=== PATIENT | male | born 1955 | race African-American/Black ===

== ENCOUNTER 2017-11-20 03:29 | Emergency (ER) | payer OTHER, MEDICARE ==
[~2017-11-20 03:29] MED LIST: ROCURONIUM BROMIDE INJ 50 MG/5 ML VIAL IV ONE
[2017-11-20] MEDS ORDERED: ETOMIDATE INJ/PF 20 MG/10 ML SDV IV ONE (04:12)
[2017-11-20] MEDS ORDERED: DEXTROSE 5%-WATER 250 ML with NOREPINEPHRINE BITARTRATE 4 MG IV PRN ×2 (04:25)
[2017-11-20] MEDS ORDERED: MIDAZOLAM 2 MG/2 ML INJ ONE (04:26)
[2017-11-20] MEDS ORDERED: ASPIRIN 81 MG TABLET, CHEWABLE PO ONE (04:29)
[2017-11-20] MEDS ORDERED: MIDAZOLAM HCL 50 MG/100 ML RTUINJ ONE ×2 (04:29→09:04)
[2017-11-20] MEDS ORDERED: NOREPINEPHRINE BITARTRATE INJ/PF 4 MG/4 ML SDV IV ONE (04:40)
--- NOTE | 2017-11-20 05:09 | ER Document Report ---
ED General - HPI Patient complains to provider of: Respiratory distress <PANKAJ PICKENS - Last Filed: 11/20/17 06:20> - General TRAVEL OUTSIDE OF THE U.S. IN LAST 30 DAYS: No <CATY DUMONTADIRAEANNMARIANO - Last Filed: 11/20/17 06:42> - General Chief Complaint: Shortness Of Breath Stated Complaint: SHORTNESS OF BREATH Time Seen by Provider: 11/20/17 04:28 Notes: Pt. is a 62 year old male presenting to the ED c/o SOB, Per the Pt. has been increasingly short of breath for the last week. Stated that the pt. has also been falling more recently. stated patient did take a fall about 3 days ago hitting the right side of his face and his right eye. states patient did not lose consciousness or have any vomiting at that time but refused to come to the emergency room. states at no time did the patient ever complained of chest pain. states the patient has been hallucinating over the last week as well. Patient has extensive medical history. Had a heart transplant in [facility] in 2011. Prior to that had an LVAD. 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 When they were trying to remove the LVAD they punctured his colon. He did have a colostomy which was then reversed. states he goes to [facility] every 6 months to follow-up at the clinic. Here in [place] he goes to the [place] clinic to see a doctor every month. is unsure of the names of those doctors. states patient continues to smoke cigarettes. 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 Please refer to the PAs note above for the initial encounter according to the nurse patient was able to stand out of the wheelchair and placed himself on the bed and became apneic upon my encounter patient was apneic being [id number] states history of LVAD now with heart transplant states productive sputum multiple falls generalized weakness noted neck himself subjective fevers for the last few days. Patient was to be in respiratory distress removing to intubate the patient (PANKAJ PICKENS) - Related Data Allergies/Adverse Reactions: No Known Allergies Allergy (Verified 01/11/12 14:25) Past Medical History - General Information source: Relative - Social History Smoking Status: Current Every Day Smoker Lives with: Family Family History: Reviewed & Not Pertinent - Past Medical History Cardiac Medical History: Reports: Hx Congestive Heart Failure, Hx Heart Attack, Hx Hypertension - NOW HAS BP IN 75 SYSTOLIC RANGE ON MEDS SINCE THE HEART TRANSPLANT Neurological Medical History: Reports: Hx Cerebrovascular Accident - 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 Past Surgical History: Reports: Hx Cardiac Surgery - heart transplant 2010, Hx Colostomy - Immunizations Immunizations up to date: Yes <GLADYS DUMONT - Last Filed: 11/20/17 06:42> Review of Systems - Review of Systems -: Yes ROS unobtainable due to patient's medical condition - Unstable <PANKAJ PICKENS - Last Filed: 11/20/17 06:20> - Review of Systems Constitutional: See HPI EENT: See HPI Cardiovascular: See HPI Respiratory: See HPI Gastrointestinal: See HPI Genitourinary: No symptoms reported Male Genitourinary: No symptoms reported Musculoskeletal: No symptoms reported Skin: No symptoms reported Hematologic/Lymphatic: No symptoms reported Neurological/Psychological: See HPI <GLADYS DUMONT - Last Filed: 11/20/17 06:42> Physical Exam - Vital signs Interpretation: Hypoxic - General General appearance: Unresponsive In distress: Severe - HEENT Head: No: Normocephalic - Swelling to the right orbit Eyes: Normal Pupils: PERRL Neck: Normal - Respiratory Respiratory status: Respiratory distress Chest status: Nontender Breath sounds: Normal Chest palpation: Normal - Cardiovascular Rhythm: Regular Heart sounds: Normal auscultation Murmur: Yes Systolic murmur grade 1-6: 3 - Abdominal Inspection: Normal Distension: No distension Bowel sounds: Normal Tenderness: Nontender Organomegaly: No organomegaly - Back Back: Normal, Nontender - Extremities General upper extremity: Normal inspection, Nontender, Normal color General lower extremity: Normal inspection, Nontender, Normal color - Neurological [place] Coma Scale Eye Opening: None [place] Coma Scale Verbal: None [place] Coma Scale Motor: None [place] Coma Scale Total: 3 - Skin Skin Temperature: Warm Skin Moisture: Dry Skin Color: Normal <PANKAJ PICKENS - Last Filed: 11/20/17 06:20> <GLADYS DUMONT - Last Filed: 11/20/17 06:42> - Vital signs Vitals: Temp Pulse Resp BP 97.9 F 88 26 H 136/70 H 11/20/17 03:50 11/20/17 03:50 11/20/17 03:50 11/20/17 03:50 - Notes Notes: GENERAL: on Bipap per staff nurse icu resource team, Pt unresponsive, agonal respirations. HEAD: Normocephalic, swelling/brusing noted right orbit. bruise noted quarter size left forehead. EYES: Pupils pin point, unresponsive. ENT: Oral mucosa moist, tongue midline. NECK: Trachea midline no JVD. LUNGS: Scant wheeze to auscultation bilaterally, no rales, or rhonchi. HEART: Regular rate and rhythm. No murmur ABDOMEN: Soft, Non-distended. Bowel sounds present in all 4 quadrants. Well healed abd scar veritcal down entire chest and abd to superpubic area. EXTREMITIES: +2 pitting edema BL lower legs to calf. normal radial and dorsalis pedis pulses bilaterally. No cyanosis. BACK: no obvious trauma NEUROLOGICAL: Unresponsive. SKIN: Warm, dry, normal turgor. (GLADYS DUMONT) - Abdominal Notes: Multiple abdominal scars (PANKAJ PICKENS) Course - Laboratory Result Diagrams: 11/20/17 04:50 11/20/17 04:50 <PANKAJ PICKENS - Last Filed: 11/20/17 06:20> - Laboratory Result Diagrams: 11/20/17 04:50 11/20/17 04:50 <GLADYS DUMONT - Last Filed: 11/20/17 06:42> - Re-evaluation Re-evalutation: Upon arrival to Pt. room Pt is unresponsive and on Bipap per RN and Resp staff. Started BVM 02 15 lpm, set up for intubation. staff nurse icu resource team had difficulty with IV access, tounge depressor placed in Pts mouth which showed no gag reflux. Intubation attempted, Pt then has a gag. At that time IV access was established and IV Etomidate was given. staff nurse icu resource team stated blood was not able to be accessed from the Pts IV site. ETT passed successfully. Rocuronium given. Central line placed by Dr. Pickens, blood obtained. Pt then went to CT. staff nurse icu resource team stated Pts BP was now 73/56, NSS Bolus and Levophed ordered. Pt. placed on Versed drip for sedation, BP now 112/92, staff nurse icu resource team informed me Levophed never started. Will hold at this time. Dr. Pickens spoke with Dr. Egan at [facility] who will accept transfer. CT shows no signs of bleeding, CXR shows PNA, ABX started for same. Dr. Harrell then took over Pt. care at shift change. (GLADYS DUMONT) - Vital Signs Vital signs: Temp Pulse Resp BP Pulse Ox 97.9 F 88 0 L 105/77 98 11/20/17 03:50 11/20/17 03:50 11/20/17 04:57 11/20/17 04:57 11/20/17 04:51 - Laboratory Laboratory results interpreted by me: 11/20/17 11/20/17 11/20/17 04:50 04:50 04:50 Hgb 13.4 L Seg Neutrophils % 85.2 H Lymphocytes % 5.2 L PT APTT VBG pCO2 VBG HCO3 Chloride 97 L Carbon Dioxide 33 H BUN 33 H Creatinine 2.26 H Est GFR ( Amer) 36 L Est GFR (Non-Af Amer) 30 L Glucose 144 H Creatine Kinase 1003 H CK-MB (CK-2) 9.16 H Total Protein 5.9 L Albumin 3.2 L 11/20/17 11/20/17 04:50 04:50 Hgb Seg Neutrophils % Lymphocytes % PT 32.3 H APTT 65.7 H VBG pCO2 65.4 H* VBG HCO3 33.6 H Chloride Carbon Dioxide BUN Creatinine Est GFR ( Amer) Est GFR (Non-Af Amer) Glucose Creatine Kinase CK-MB (CK-2) Total Protein Albumin Procedures - Central Line Left Internal jugular Consent obtained: Yes Central line pre-insertion: Sterile PPE donned, Betadine prep applied Central line lumen type: Triple Anesthetic type: 1% Lidocaine mL's of anesthesia: 2 Ultrasound guided: Yes CM at insertion site: 17 Line secured with sutures: Yes Central line post-insertion: Blood return from lumens, Biopatch applied, Sutured , Sterile dressing applied, Position confirmed w/ CXR Number of attempts: 1 Complications: No <PANKAJ PICKENS - Last Filed: 11/20/17 06:20> - Intubation Orotracheal Airway evaluation: Normal anatomy Medications: Etomidate Intubation method: Orotracheal Equipment used: Glidescope ETT size: 7.5 ETT secured at: Teeth ETT secured at (cm): 25 Breath Sounds after Intubation: Equal End tidal CO2 confirmed: Yes Post Intubation Xray: Yes Intubation Complications: No complications <GLADYS DUMONT - Last Filed: 11/20/17 06:42> Critical Care Note - Critical Care Note Total time excluding time spent on procedures (mins): 60 <PANKAJ PICKENS - Last Filed: 11/20/17 06:20> <GLADYS DUMONT - Last Filed: 11/20/17 06:42> - Critical Care Note Comments: Multiple evaluation patient with history of heart transplant requiring Levophed for blood pressure chest x-ray showing a multifocal pneumonia (PANKAJ PICKENS) Discharge <PANKAJ PICKENS - Last Filed: 11/20/17 06:20> <GLADYS DUMONT - Last Filed: 11/20/17 06:42> - Discharge Clinical Impression: History of heart transplant, Multifocal pneumonia Respiratory failure Qualifiers: Chronicity: acute Respiratory failure complication: hypoxia and hypercapnia Qualified Code(s): J96.01 - Acute respiratory failure with hypoxia Hypotension Qualifiers: Hypotension type: unspecified hypotension type Qualified Code(s): I95.9 - Hypotension, unspecified Condition: Critical Disposition: [place]
[2017-11-20 05:15] LABS: VENOUS BLOOD BASE EXCESS 5.4 mmol/L; VENOUS BLOOD HCO3 33.6 mmol/L (20-32); VENOUS BLOOD PH 7.33 (7.30-7.42)
[2017-11-20 05:18] LABS: VENOUS BLOOD PCO2 65.4 mmHg (35-63)
[2017-11-20] MEDS ORDERED: NORMAL SALINE 1000 ML 1,000 ML IV ONE ×3 (05:18→06:15)
[2017-11-20 05:20] LABS: ABSOLUTE BASOPHILS # (AUTO) 0.1 10^3/uL (0.0-0.2); ABSOLUTE LYMPHOCYTES (AUTO) 0.5 10^3/uL (0.5-4.7); ABSOLUTE MONOCYTES (AUTO) 0.8 10^3/uL (0.1-1.4); ABSOLUTE NEUT (AUTO) 8.1 10^3/uL (1.7-8.2); BASOPHILS % (AUTO) 0.6 % (0-2); EOSINOPHILS % (AUTO) 0.4 % (0-6); HEMATOCRIT 40.6 % (37.9-51.0); HEMOGLOBIN 13.4 g/dL (13.5-17.0); LYMPHOCYTES % (AUTO) 5.2 % (13-45); MEAN CORPUSCULAR HEMOGLOBIN 30.7 pg (27.0-33.4); MEAN CORPUSCULAR HGB CONC 32.9 g/dL (32.0-36.0); MEAN CORPUSCULAR VOLUME 93 fl (80-97); MONOCYTES % (AUTO) 8.6 % (3-13); PLATELET COUNT 182 10^3/uL (150-450); RED BLOOD COUNT 4.35 10^6/uL (4.35-5.55); SEGMENTED NEUTROPHILS % (AUTO) 85.2 % (42-78); TOTAL CELLS COUNTED % (AUTO) 100 %; WHITE BLOOD COUNT 9.6 10^3/uL (4.0-10.5)
[2017-11-20 05:23] LABS: INTERNATIONAL RATION (INR) 2.97; PROTHROMBIN TIME 32.3 SEC (11.4-15.4)
[2017-11-20 05:25] LABS: PARTIAL THROMBOPLASTIN TIME 65.7 SEC (23.5-35.8)
[2017-11-20 05:29] LABS: ALANINE AMINOTRANSFERASE 48 U/L (21-72); ALBUMIN 3.2 g/dL (3.5-5.0); ALKALINE PHOSPHATASE 56 U/L (38-126); ANION GAP 9 (5-19); ASPARTATE AMINO TRANSFERASE 55 U/L (17-59); BILIRUBIN,DIRECT 0.2 mg/dL (0.0-0.4); BILIRUBIN,TOTAL 0.7 mg/dL (0.2-1.3); BLOOD UREA NITROGEN 33 mg/dL (7-20); CALCIUM 8.4 mg/dL (8.4-10.2); CARBON DIOXIDE 33 mmol/L (22-30); CHLORIDE 97 mmol/L (98-107); CREATINE KINASE 1003 U/L (55-170); GLUCOSE 144 mg/dL (75-110); POTASSIUM 3.9 mmol/L (3.6-5.0); TOTAL PROTEIN 5.9 g/dL (6.3-8.2)
--- NOTE | 2017-11-20 05:31 | RADIOLOGY REPORT (SQ) ---
CT head without contrast on 11/20/2017 at 5:09 AM CLINICAL INDICATION: Altered level of consciousness TECHNIQUE: Multiple axial images are obtained throughout the head without the administration of contrast. This exam was performed according to our departmental dose-optimization program, which includes automated exposure control, adjustment of the mA and/or kV according to patient size and/or use of iterative reconstruction technique. Total DLP is 1070.38 mGy*cm. COMPARISON: 08/16/2010 FINDINGS: There is no hydrocephalus. There is no CT evidence of acute infarct. There is no hemorrhage. There are no abnormal extra-axial fluid collections. There is no mass, mass effect or midline shift. Chronic complete opacification of the hypoplastic left maxillary sinuses consistent with changes of chronic sinusitis. There is chronic opacification of the left frontal sinus consistent with chronic sinusitis. No bony abnormality is noted. IMPRESSION: 1. No acute intracranial abnormality. 2. Stable chronic left maxillary and left frontal sinusitis.
--- NOTE | 2017-11-20 05:32 | RADIOLOGY REPORT (SQ) ---
EXAM DESCRIPTION: XR CHEST 1 VIEW COMPLETED DATE/TME: 11/20/2017 00:00 CLINICAL HISTORY: 62 years Male, POST INTUBATION COMPARISON: January 11, 2012 NUMBER OF VIEWS/TECHNIQUE: 1/AP FINDINGS: Adequate lung volume, mild central edema pattern, small curvilinear opacity of the left lower lung field, normal cardiac silhouette, small hazy opacity-effusion of the right lung base, left jugular central line tip at the SVC, sternotomy, likely adequate enteric tube obscured distally, and tip of an endotracheal tracheal tube is 4.2 cm from the shin. Right upper thoracic clips., normal cardiac silhouette, and intact bony thorax. IMPRESSION: Mild mixed interstitial and airpace opacities. Differential diagnosis includes pulmonary edema, multifocal pneumonia, and chronic interstitial lung disease. Lines and tubes.
[2017-11-20 05:41] LABS: CREATINE KINASE MB 9.16 ng/mL (<4.55)
[2017-11-20 05:44] LABS: TROPONIN I 0.066 ng/mL
[2017-11-20] MEDS ORDERED: VANCOMYCIN HCL INJ 1000 MG VIAL IV ONE (05:44)
[2017-11-20] MEDS ORDERED: CEFEPIME 1 GM/D5W RTU 1 GM/50 ML RTUPB IV SCH (05:45)
--- NOTE | 2017-11-20 09:21 | EKG REPORT ---
SEVERITY:- BORDERLINE ECG - SINUS RHYTHM PROBABLE LEFT ATRIAL ABNORMALITY BORDERLINE PROLONGED QT INTERVAL : Confirmed by: Anamaria Cruz MD 20-Nov-2017 09:20:21
--- NOTE | 2017-11-20 09:21 | EKG REPORT ---
SEVERITY:- ABNORMAL ECG - SINUS RHYTHM BORDERLINE RIGHT AXIS DEVIATION NONSPECIFIC T ABNORMALITIES, ANTERIOR LEADS : Confirmed by: Anamaria Cruz MD 20-Nov-2017 09:20:16
--- NOTE | 2017-11-20 09:50 | ER Document Report ---
Doctor's Note Notes: 11/20/17 09:49 Patient's vital signs are stable. Patient has adequate sedation. Will fly to [facility].
[2017-11-20 09:54] LABS: AMORPHOUS SEDIMENT,URINE TRACE /HPF; APPEARANCE,URINE CLOUDY; BILIRUBIN,URINE NEGATIVE (NEGATIVE); GLUCOSE, URINE NEGATIVE (NEGATIVE); KETONES,URINE NEGATIVE (NEGATIVE); LEUKOCYTE ESTERASE,URINE MODERATE (NEGATIVE); NITRITE,URINE NEGATIVE (NEGATIVE); PROTEIN,URINE >=500 mg/dL (NEGATIVE); UROBILINOGEN,URINE NEGATIVE mg/dL (<2.0)
[2017-11-20 09:56] LABS: COLOR,URINE YELLOW
[2017-11-20 10:10] VITALS: BP 109/78
[2017-11-20 10:10] LABS: URINE AMPHETAMINES SCREEN NEGATIVE; URINE BARBITURATES SCREEN NEGATIVE; URINE BENZODIAZEPINES SCREEN NEGATIVE; URINE COCAINE SCREEN NEGATIVE; URINE MARIJUANA (THC) SCREEN UNCONFIRMED POSITIVE; URINE METHADONE SCREEN NEGATIVE; URINE PHENCYCLIDINE SCREEN NEGATIVE
[2017-11-27] MEDS ORDERED: MIDAZOLAM HCL 50 MG/100 ML RTUINJ IV PRN (04:25)
== END 2017-11-20 10:00 | disposition short-term general hospital (02) ==
LOC: ER 03:29
DX: J96.02 Acute respiratory failure with hypercapnia (principal); J96.01 Acute respiratory failure with hypoxia; J18.9 Pneumonia, unspecified organism; I95.9 Hypotension, unspecified; R06.02 Shortness of breath; R60.0 Localized edema; R53.1 Weakness; R44.3 Hallucinations, unspecified; S00.11XA Contusion of right eyelid and periocular area, initial encounter; S00.83XA Contusion of other part of head, initial encounter; W19.XXXA Unspecified fall, initial encounter; F17.200 Nicotine dependence, unspecified, uncomplicated; I10 Essential (primary) hypertension; Z94.1 Heart transplant status; Z79.899 Other long term (current) drug therapy; Z79.82 Long term (current) use of aspirin; Z79.01 Long term (current) use of anticoagulants
CPT/HCPCS: 93005; 99291; 96361; 51702; 96365; 96366; 96368; 36415; 87040; 87086; 82553; 82962; 82550; 83690; 85025; 85610; 85730; 80053; 81001; 84484; 80307; 82803; 71045; 70450; 94660; 93010; 36556; 31500; C1751; J3490 ×3; J2250; J7030; J3370; J0692

== ENCOUNTER → 2018-01-18 | Outpatient (CLI) | payer OTHER ==
--- NOTE | 2018-01-19 11:53 | XCELERA REPORT ---
[address] [address] Upper Extremity Venous Evaluation Name: ALYSIA AGARWAL Age: 62 yrs Gender: Male : 1955 Patient Status: Outpatient Patient Location: Study Date: 01/18/2018 11:54 AM Procedure: Unilateral duplex scan of the left upper extremity veins was performed, including responses to compression and other maneuvers. Reason For Study: LEFT ARM SWELLING Ordering Physician: JUNIOR GARCIA PA-C Performed By: Gurdeep Lang Left Sided Venous Evaluation Abnormal vessel filling, no compression or Colour flow in the Axillary and Basilic veins. Lucent, enlarged filling defects. Critical Findings Results discussed with Junior Garcia PA. Interpretation Summary Acute deep venous thrombosis in the left Axillary and superficial venous thrombosis in the left Basilic vein. : JUNIOR GARCIA PA-C > Terrance Hamilton
--- NOTE | 2018-01-19 12:50 | XCELERA REPORT ---
[address] [address] Upper Extremity Arterial Evaluation Name: ALYSIA AGARWAL Age: 62 yrs Gender: Male : 1955 Patient Status: Outpatient Patient Location: Study Date: 01/18/2018 11:31 AM Procedure: A duplex scan of the upper extremity arteries was performed on the left. Reason For Study: LUE STENOSIS Ordering Physician: JUNIOR AQUINO PA-C Performed By: Gurdeep Lang Measurements and Calculations Right Left Prox SCLA PSV -91.1 cm/sec Ax A PSV 82.2 cm/sec Prox Brach A PSV 70.2 cm/sec Dist Brach A PSV -67.2 cm/sec Prox Rad A PSV -20.6 cm/sec Mid Rad A PSV -20.4 cm/sec Dist Rad A PSV -28.9 cm/sec Prox Ulnar A PSV -67.2 cm/sec Mid Ulnar A PSV 77.7 cm/sec Dist Ulnar A PSV -77.2 cm/sec Ax A PSV 82.2 cm/sec Dist Brach A PSV -67.2 cm/sec Dist Rad A PSV -28.9 cm/sec Dist Ulnar A PSV -77.2 cm/sec Mid Rad A PSV -20.4 cm/sec Mid Ulnar A PSV 77.7 cm/sec Prox Brach A PSV 70.2 cm/sec Prox Rad A PSV -20.6 cm/sec Prox Ulnar A PSV -67.2 cm/sec Left Side Arterial Evaluation Normal velocity and triphasic waveforms noted from the Common Femoral artery to the forearm vessels . Bandaging at the chest makes the Subclavian inaccessible to ultrasound. Interpretation Summary No hemodynamically significant lesions in the left upper extremity only, on duplex imaging, at rest. : CHRISTIANE GUEVARA [place] >
== END ==
LOC: SP 11:01
PROVIDERS: ATTEND Physician Assistant Medical
DX: I82.A12 Acute embolism and thrombosis of left axillary vein (principal); I82.612 Acute embolism and thrombosis of superficial veins of left upper extremity
CPT/HCPCS: 93931; 93971

== ENCOUNTER → 2018-07-02 | Outpatient (CLI) | payer OTHER ==
[2018-07-02 15:57] LABS: URINE CREATININE 81.6 mg/dL (22-328)
[2018-07-02 15:58] LABS: CREATININE 3.3 mg/dL (0.52-1.25)
== END ==
LOC: OD 14:21
PROVIDERS: ATTEND Physician Assistant Medical
DX: N17.9 Acute kidney failure, unspecified (principal)
CPT/HCPCS: 36415; 82575

== ENCOUNTER → 2018-08-02 | Outpatient (CLI) | payer OTHER ==
[2018-08-02 09:07] LABS: HEMATOCRIT 37.8 % (37.9-51.0); HEMOGLOBIN 12.1 g/dL (13.5-17.0); MEAN CORPUSCULAR HEMOGLOBIN 29.2 pg (27.0-33.4); MEAN CORPUSCULAR HGB CONC 32.1 g/dL (32.0-36.0); MEAN CORPUSCULAR VOLUME 91 fl (80-97); PLATELET COUNT 209 10^3/uL (150-450); RED BLOOD COUNT 4.15 10^6/uL (4.35-5.55); RED CELL DISTRIBUTION WIDTH 13.9 % (11.5-14.0); WHITE BLOOD COUNT 7.2 10^3/uL (4.0-10.5)
[2018-08-02 09:15] LABS: APPEARANCE,URINE SLIGHTLY-CLOUDY; BILIRUBIN,URINE NEGATIVE (NEGATIVE); COLOR,URINE YELLOW; GLUCOSE, URINE NEGATIVE (NEGATIVE); KETONES,URINE NEGATIVE (NEGATIVE); LEUKOCYTE ESTERASE,URINE SMALL (NEGATIVE); NITRITE,URINE NEGATIVE (NEGATIVE); PROTEIN,URINE >=500 mg/dL (NEGATIVE); URINE SPECIFIC GRAVITY 1.009; UROBILINOGEN,URINE NEGATIVE mg/dL (<2.0)
[2018-08-02 09:36] LABS: ANION GAP 7 (5-19); BLOOD UREA NITROGEN 43 mg/dL (7-20); CALCIUM 8.8 mg/dL (8.4-10.2); CARBON DIOXIDE 32 mmol/L (22-30); CHLORIDE 104 mmol/L (98-107); GLUCOSE 102 mg/dL (75-110); PHOSPHORUS 3.9 mg/dL (2.5-4.5); POTASSIUM 4.9 mmol/L (3.6-5.0); SODIUM 143.1 mmol/L (137-145)
== END ==
LOC: OD 08:26
PROVIDERS: ATTEND Physician Assistant Medical
DX: I11.0 Hypertensive heart disease with heart failure (principal); I50.9 Heart failure, unspecified; E87.5 Hyperkalemia
CPT/HCPCS: 36415; 80048; 81001; 83970; 84100; 85027

== ENCOUNTER 2018-10-15 09:33 | Inpatient (IN) | payer OTHER ==
[2018-10-15] MEDS ORDERED: IPRATROPIUM/ALBUTEROL 0.5-2.5 MG/3 ML AMPUL NEB ONE (10:07)
[2018-10-15] MEDS ORDERED: FUROSEMIDE INJ/PF 100 MG/10 ML SDV IV ONE ×2 (10:11→19:47)
--- NOTE | 2018-10-15 10:20 | ER Document Report ---
Entered by AURA YEH SCRIBE 10/15/18 1008 Acting as scribe for:ELVIRA KELLER MD ED Respiratory Problem - General Chief Complaint: Chest Tightness Stated Complaint: SHORT OF BREATH Time Seen by Provider: 10/15/18 09:58 Mode of Arrival: Ambulatory Information source: Patient Notes: Patient is a 62 year old male with a heart transplant that presents to the [facility] department today with complaints of shortness of breath. Relative at bedside states the patient has had shortness of breath for the last 2 to 3 days with a slightly productive cough. Patient has had leg swelling for about 2 weeks. Patient is no longer on dialysis. Patient is not on home oxygen. Patient has a long complicated history- Had LVAD, removed for heart transplant on 09/24/10, colon injury requiring diverting colostomy or ileostomy during the LVAD removal. Colostomy reversal on 12/08/2011. TRAVEL OUTSIDE OF THE [place] IN LAST 30 DAYS: No - Related Data Allergies/Adverse Reactions: No Known Allergies Allergy (Verified 10/15/18 09:34) Past Medical History - General Information source: Patient, Relative, [facility] Records - Social History Smoking Status: Smoker,Current Status Unk Frequency of alcohol use: None Drug Abuse: Marijuana Family History: Reviewed & Not Pertinent - Past Medical History Cardiac Medical History: Reports: Hx Congestive Heart Failure, Hx Heart Attack, Hx Hypertension - NOW HAS BP IN 75 SYSTOLIC RANGE ON MEDS SINCE THE HEART TRANSPLANT Neurological Medical History: Reports: Hx Cerebrovascular Accident - 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 Past Surgical History: Reports: Hx Cardiac Surgery - LVAD with subsequent heart transplant 2010, Hx Colostomy - Immunizations Immunizations up to date: Yes Review of Systems - Review of Systems Notes: given by relative at bedside Constitutional: No symptoms reported EENT: No symptoms reported Cardiovascular: No symptoms reported Respiratory: See HPI, Cough, Short of breath, Wheezing Gastrointestinal: No symptoms reported Genitourinary: No symptoms reported Male Genitourinary: No symptoms reported Musculoskeletal: See HPI, Leg swelling - bilaterally Skin: No symptoms reported Hematologic/Lymphatic: No symptoms reported Neurological/Psychological: No symptoms reported -: Yes All other systems reviewed and negative Physical Exam - Vital signs Vitals: Temp Pulse Resp BP Pulse Ox 98.1 F 103 H 36 H 177/98 H 88 L 10/15/18 09:47 10/15/18 09:47 10/15/18 09:47 10/15/18 09:47 10/15/18 09:47 - Notes Notes: Physical Exam: General: Lethargic but arousable, appears short of breath. HEENT: Normocephalic. Atraumatic. PERRL. Extraocular movements intact. Oropharynx clear. Neck: Supple. Non-tender. Respiratory: Moderate respiratory distress. Wheezing and rhonchi bilaterally with forced cough. Cardiovascular: Regular rate and rhythm. Abdominal: Normal Inspection. Non-tender. No distension. Normal Bowel Sounds. Back: No gross abnormalities. Extremities: Moves all four extremities. Upper extremities: Normal inspection. Normal ROM. Lower extremities: 3+ pitting edema bilaterally. Normal ROM. Neurological: Lethargic but arousable. Patient is alert and oriented x4 when aroused. Skin: Warm. Dry. Normal color. Course - Re-evaluation Re-evalutation: 10/15/18 13:00 Nolan Garza NP, inform me that Dr. Cruz wanted the patient transferred to [facility] rather than admitted here. I did call the [facility] transfer center and spoke with Dr. Payne with the transplant team. He agrees to accept the patient on the service of Dr. Anastasiya Flores. The patient is put on a wait list. They request that if the patient gets worse over the next several hours, then to call back and they would try to make him an ED to ED transfer. At this time their emergency department is closed to accepting any transfers. - Vital Signs Vital signs: Temp Pulse Resp BP Pulse Ox 98.1 F 103 H 16 180/110 H 100 10/15/18 09:47 10/15/18 09:47 10/15/18 12:46 10/15/18 12:15 10/15/18 10:51 - Laboratory Result Diagrams: 10/15/18 09:55 10/15/18 09:55 Laboratory results interpreted by me: 10/15/18 10/15/18 10/15/18 09:55 09:55 09:55 RBC 3.99 L Hgb 11.4 L Hct 36.2 L MCHC 31.6 L RDW 14.7 H Lymph % (Auto) 10.3 L Seg Neutrophils % 80.2 H PT Carbonic Acid ABG pH ABG pCO2 ABG HCO3 Carbon Dioxide 32 H BUN 45 H Creatinine 3.04 H Est GFR ( Amer) 25 L Est GFR (MDRD) Non-Af 21 L Glucose 127 H Lactic Acid 0.6 L Creatine Kinase 579 H NT-Pro-B Natriuret Pep Urine Protein Urine Blood Ur Leukocyte Esterase 10/15/18 10/15/18 10/15/18 09:55 09:55 10:15 RBC Hgb Hct MCHC RDW Lymph % (Auto) Seg Neutrophils % PT 36.8 H Carbonic Acid 1.85 H ABG pH 7.23 L ABG pCO2 61.5 H ABG HCO3 24.9 H Carbon Dioxide BUN Creatinine Est GFR ( Amer) Est GFR (MDRD) Non-Af Glucose Lactic Acid Creatine Kinase NT-Pro-B Natriuret Pep 5950 H Urine Protein Urine Blood Ur Leukocyte Esterase 10/15/18 10:32 RBC Hgb Hct MCHC RDW Lymph % (Auto) Seg Neutrophils % PT Carbonic Acid ABG pH ABG pCO2 ABG HCO3 Carbon Dioxide BUN Creatinine Est GFR ( Amer) Est GFR (MDRD) Non-Af Glucose Lactic Acid Creatine Kinase NT-Pro-B Natriuret Pep Urine Protein 100 H Urine Blood SMALL H Ur Leukocyte Esterase SMALL H - Diagnostic Test Radiology reviewed: Reports reviewed - Chest x-ray shows mild central vascular congestion - EKG Interpretation by Me EKG shows normal: Sinus rhythm, [place], QRS Complexes, ST-T Waves. abnormal: Intervals - Borderline prolonged QT interval Rate: Tachycardia - 101 - Consults Nolan Garza [employer] Time consulted: 11:40 Consulted provider: will come to ER Critical Care Note - Critical Care Note Total time excluding time spent on procedures (mins): 45 Discharge - Discharge Clinical Impression: Pulmonary vascular congestion, Excessive anticoagulation, Chronic renal failure, stage 4 (severe) Dyspnea Qualifiers: Dyspnea type: acute respiratory distress Qualified Code(s): R06.03 - Acute respiratory distress Hypertension Qualifiers: Hypertension type: essential hypertension Qualified Code(s): I10 - Essential (primary) hypertension Condition: Fair Disposition: [place] Scribe Attestation: 10/15/18 10:23 I personally performed the services described in the documentation, reviewed and edited the documentation which was dictated to the scribe in my presence, and it accurately records my words and actions. I personally performed the services described in the documentation, reviewed and edited the documentation which was dictated to the scribe in my presence, and it accurately records my words and actions.
[2018-10-15 10:27] LABS: ARTERIAL BLOOD BASE EXCESS -3.5 mmol/L; ARTERIAL BLOOD H2CO3 1.85 mmol/L (1.05-1.35); ARTERIAL BLOOD HCO3 24.9 mmol/L (20-24); ARTERIAL BLOOD O2 SATURATION 96.1 % (94-98); ARTERIAL BLOOD PCO2 61.5 mmHg (35-45); ARTERIAL BLOOD PH 7.23 (7.35-7.45); ARTERIAL BLOOD PO2 99.1 mmHg (80-100); ARTERIAL BLOOD TOTAL CO2 26.8 mmol/L (23-27)
[2018-10-15 10:28] LABS: ABSOLUTE BASOPHILS # (AUTO) 0.1 10^3/uL (0.0-0.2); ABSOLUTE EOSINOPHILS # (AUTO) 0.1 10^3/uL (0.0-0.6); ABSOLUTE LYMPHOCYTES (AUTO) 0.8 10^3/uL (0.5-4.7); ABSOLUTE MONOCYTES (AUTO) 0.6 10^3/uL (0.1-1.4); ABSOLUTE NEUT (AUTO) 6.3 10^3/uL (1.7-8.2); BASOPHILS % (AUTO) 0.8 % (0-2); EOSINOPHILS % (AUTO) 1.6 % (0-6); HEMATOCRIT 36.2 % (37.9-51.0); HEMOGLOBIN 11.4 g/dL (13.5-17.0); LYMPHOCYTES % (AUTO) 10.3 % (13-45); MEAN CORPUSCULAR HEMOGLOBIN 28.7 pg (27.0-33.4); MEAN CORPUSCULAR HGB CONC 31.6 g/dL (32.0-36.0); MEAN CORPUSCULAR VOLUME 91 fl (80-97); MONOCYTES % (AUTO) 7.1 % (3-13); PLATELET COUNT 261 10^3/uL (150-450); RED BLOOD COUNT 3.99 10^6/uL (4.35-5.55); RED CELL DISTRIBUTION WIDTH 14.7 % (11.5-14.0); SEGMENTED NEUTROPHILS % (AUTO) 80.2 % (42-78); TOTAL CELLS COUNTED % (AUTO) 100 %; WHITE BLOOD COUNT 7.8 10^3/uL (4.0-10.5)
[2018-10-15 10:28] LABS: ARTERIAL BLOOD FIO2 2L
[2018-10-15] MEDS ORDERED: LIDOCAINE 2% URO-JET 5 ML KIT MM ONE (10:28)
[2018-10-15 10:30] LABS: ALKALINE PHOSPHATASE 73 U/L (38-126); ANION GAP 7 (5-19); ASPARTATE AMINO TRANSFERASE 36 U/L (17-59); BILIRUBIN,DIRECT 0.3 mg/dL (0.0-0.4); BILIRUBIN,TOTAL 0.4 mg/dL (0.2-1.3); BLOOD UREA NITROGEN 45 mg/dL (7-20); CARBON DIOXIDE 32 mmol/L (22-30); CHLORIDE 103 mmol/L (98-107); CREATINE KINASE 579 U/L (55-170); GLUCOSE 127 mg/dL (75-110); POTASSIUM 4.6 mmol/L (3.6-5.0); TOTAL PROTEIN 7.1 g/dL (6.3-8.2)
[2018-10-15 10:32] LABS: PROTHROMBIN TIME 36.8 SEC (11.4-15.4)
--- NOTE | 2018-10-15 10:41 | RADIOLOGY REPORT (SQ) ---
EXAM DESCRIPTION: CHEST SINGLE VIEW COMPLETED DATE/TIME: 10/15/2018 10:30 am REASON FOR STUDY: SOB COMPARISON: 01/11/2012 NUMBER OF VIEWS: One view. TECHNIQUE: Single frontal radiographic view of the chest acquired. LIMITATIONS: None. FINDINGS: LUNGS AND PLEURA: Minimal left basilar atelectasis. Small left effusion. Lung augustine are otherwise clear. Dialysis catheter is in place. MEDIASTINUM AND HILAR STRUCTURES: No masses. Contour normal. HEART AND VASCULAR STRUCTURES: Heart is slightly enlarged with central vascular prominence. BONES: No acute findings. HARDWARE: None in the chest. OTHER: No other significant finding. IMPRESSION: Left basilar atelectasis. Small effusion. Mild central vascular congestion. TECHNICAL DOCUMENTATION: JOB ID: [id number] [employer]- All Rights Reserved Reading location - IP/workstation name: [email or web address]
[2018-10-15 10:42] LABS: CREATINE KINASE MB 4.41 ng/mL (<4.55)
[2018-10-15 10:45] LABS: APPEARANCE,URINE CLEAR; BILIRUBIN,URINE NEGATIVE (NEGATIVE); COLOR,URINE YELLOW; GLUCOSE, URINE NEGATIVE (NEGATIVE); KETONES,URINE NEGATIVE (NEGATIVE); LEUKOCYTE ESTERASE,URINE SMALL (NEGATIVE); NITRITE,URINE NEGATIVE (NEGATIVE); PROTEIN,URINE 100 mg/dL (NEGATIVE); URINE SPECIFIC GRAVITY 1.011; UROBILINOGEN,URINE NEGATIVE mg/dL (<2.0)
[2018-10-15 10:59] LABS: URINE AMPHETAMINES SCREEN NEGATIVE; URINE BARBITURATES SCREEN NEGATIVE; URINE BENZODIAZEPINES SCREEN NEGATIVE; URINE COCAINE SCREEN NEGATIVE; URINE MARIJUANA (THC) SCREEN NEGATIVE; URINE METHADONE SCREEN NEGATIVE; URINE PHENCYCLIDINE SCREEN NEGATIVE
[2018-10-15 11:06] LABS: TROPONIN I 0.067 ng/mL
[2018-10-15] MEDS ORDERED: HYDRALAZINE HCL INJ/PF 20 MG/1 ML SDV IV ONE ×3 (12:33→19:50)
[2018-10-15] MEDS ORDERED: METOPROLOL TARTRATE PF/INJ 5 MG/5 ML SDV IV ONE ×2 (14:45→16:30)
[2018-10-15] MEDS ORDERED: ACETAMINOPHEN 325 MG TABLET PO PRN (19:53)
[2018-10-15] MEDS ORDERED: MAG HYDROX/AL HYDROX/SIMETH SUSP 30 ML UDCUP PO PRN (19:53)
[2018-10-15] MEDS ORDERED: ONDANSETRON 4 MG TAB.RAPDIS PO PRN (19:53)
[2018-10-15] MEDS ORDERED: LEVALBUTEROL HCL NEB 1.25 MG/3 ML AMPUL NEB PRN (20:40)
[2018-10-15 20:49] LABS: ANION GAP 8 (5-19); BLOOD UREA NITROGEN 45 mg/dL (7-20); CALCIUM 8.6 mg/dL (8.4-10.2); CARBON DIOXIDE 33 mmol/L (22-30); CHLORIDE 101 mmol/L (98-107); GLUCOSE 111 mg/dL (75-110); POTASSIUM 4.8 mmol/L (3.6-5.0)
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
[2018-10-15] MEDS ORDERED: WARFARIN SODIUM 5 MG TABLET PO SCH (22:00)
--- NOTE | 2018-10-15 22:12 | ADVANCED CARE ---
- Diagnosis (1) Acute respiratory failure with hypoxia and hypercapnia Diagnosis Current: Yes (2) Chronic renal failure, stage 4 (severe) Diagnosis Current: Yes (3) Acute on chronic congestive heart failure Diagnosis Current: Yes (4) Hypertension Diagnosis Current: Yes (5) Heart transplant recipient Diagnosis Current: Yes (6) Excessive anticoagulation Diagnosis Current: Yes (7) Hyperlipidemia Diagnosis Current: Yes (8) Tobacco dependence due to cigarettes Diagnosis Current: Yes (9) Obstructive sleep apnea Diagnosis Current: Yes Attendance: Discussion was had with the patient and his who was at the bedside. Resuscitation Status: Full Code Discussion: Reviewed with the patient and his the generic healthcare proxy form in the admissions packet. I pointed out that patient is quite ill and already has had a cardiac transplant. He continues to smoke. Last year he had a similar episode with severe congestive heart failure. At the end of last year he also experienced kidney failure requiring hemodialysis. Fortunately for the patient he did recover. He is able to make urine as well. I did explain that he is at significantly higher risk to within the next several years especially if he does not improve his health care. Care Planning Goals: The goal was to point out the patient's significant risk factors as well as the importance of having a healthcare proxy document in place. Document(s) Completed: None Time Spent: 25 minutes
[2018-10-15] MEDS: FUROSEMIDE INJ/PF 100 MG/10 ML SDV IV SCH (22:54)
[2018-10-15] MEDS: ATORVASTATIN CALCIUM 40 MG TABLET PO SCH (23:00)
[2018-10-15] MEDS: FAMOTIDINE 20 MG TABLET PO SCH (23:00)
[2018-10-15] MEDS: ASPIRIN 81 MG TABLET, ENT COATED PO SCH (23:00)
[2018-10-15] MEDS: TACROLIMUS ANHYDROUS 1 MG CAPSULE PO SCH (23:02)
[2018-10-16] MEDS: NITROGLYCERIN 2% OINTMENT 1 GM PACKET TP SCH ×5 (00:21→23:32)
[2018-10-16] MEDS: HYDRALAZINE HCL 10 MG TABLET PO SCH ×5 (00:22→23:32)
[2018-10-16] MEDS: TACROLIMUS ANHYDROUS 1 MG CAPSULE PO SCH ×3 (00:22→21:49)
[2018-10-16] MEDS: FUROSEMIDE INJ/PF 100 MG/10 ML SDV IV SCH ×2 (06:09→14:03)
[2018-10-16 07:08] LABS: ARTERIAL BLOOD BASE EXCESS 1.4 mmol/L; ARTERIAL BLOOD FIO2 30%; ARTERIAL BLOOD H2CO3 1.85 mmol/L (1.05-1.35); ARTERIAL BLOOD HCO3 29.2 mmol/L (20-24); ARTERIAL BLOOD O2 SATURATION 87.9 % (94-98); ARTERIAL BLOOD PCO2 61.5 mmHg (35-45); ARTERIAL BLOOD PH 7.29 (7.35-7.45); ARTERIAL BLOOD PO2 60.5 mmHg (80-100); ARTERIAL BLOOD TOTAL CO2 31.1 mmol/L (23-27)
[2018-10-16] MEDS ORDERED: METOPROLOL SUCCINATE 50 MG TAB.SR.24H PO SCH (07:45)
[2018-10-16] MEDS ORDERED: NICOTINE 7 MG/24 HR PATCH.TD24 TD PRN (07:54)
--- NOTE | 2018-10-16 07:57 | PDOC PROGRESS REPORT ---
Subjective Progress Note for:: 10/16/18 Subjective:: Patient did not sleep well last night. He remains on BiPAP. He is still somnolent this morning. I do not observe any further foaming at the mouth. He did not his head to acknowledge that his breathing felt better. Reason For Visit: ACUTE KIDNEY FAILURE Physical Exam Vital Signs: Temp Pulse Resp BP Pulse Ox 98.4 F 106 H 20 149/87 H 97 10/16/18 05:29 10/16/18 05:29 10/16/18 05:29 10/16/18 05:29 10/16/18 05:29 Intake & Output 10/15/18 10/16/18 10/17/18 06:59 06:59 06:59 Intake Total 150 Output Total 3625 Balance -3475 Weight 105.3 kg General appearance: PRESENT: cooperative - Limited cooperation due to somnolence., mild distress - The patient is mildly tachypneic resting on BiPAP., well-developed Head exam: PRESENT: atraumatic, normocephalic Eye exam: PRESENT: conjunctival injection, other - Still with scleral edema. ABSENT: scleral icterus Ear exam: PRESENT: normal external ear exam. ABSENT: bleeding, drainage Mouth exam: PRESENT: other - BiPAP mask in place but no further foaming at the mouth Neck exam: PRESENT: other - BiPAP mask in place Respiratory exam: PRESENT: decreased breath sounds - Distant breath sounds globally, rales - Faint rales bilaterally, symmetrical, tachypnea. ABSENT: accessory muscle use, rhonchi, wheezes Cardiovascular exam: PRESENT: +S1, +S2, systolic murmur - 2/6, tachycardia - Regular rhythm with tachycardia GI/Abdominal exam: PRESENT: normal bowel sounds, soft. ABSENT: distended - Protuberant abdomen, tenderness Rectal exam: PRESENT: deferred Gentrourinary exam: PRESENT: indwelling catheter Extremities exam: PRESENT: pedal edema - Markedly reduced. Wrinkled skin ind icating fluid loss.. ABSENT: tenderness Musculoskeletal exam: PRESENT: normal inspection. ABSENT: deformity Neurological exam: PRESENT: awake, oriented to person, oriented to place, oriented to situation. ABSENT: alert - Awake but somnolent as noted above Psychiatric exam: PRESENT: other - Relaxed affect. ABSENT: agitated, anxious Focused psych exam: ABSENT: delusional, restlessness Skin exam: PRESENT: dry, warm, other - Very dry skin.. ABSENT: rash Results Laboratory Results: 10/15/18 09:55 10/15/18 19:55 10/15/18 10/15/18 10/15/18 09:55 09:55 09:55 WBC 7.8 RBC 3.99 L Hgb 11.4 L Hct 36.2 L MCV 91 MCH 28.7 MCHC 31.6 L RDW 14.7 H Plt Count 261 Seg Neutrophils % 80.2 H Carbonic Acid HCO3/H2CO3 Ratio ABG pH ABG pCO2 ABG pO2 ABG HCO3 ABG O2 Saturation ABG Base Excess FiO2 Sodium 141.9 Potassium 4.6 Chloride 103 Carbon Dioxide 32 H Anion Gap 7 BUN 45 H Creatinine 3.04 H Est GFR ( Amer) 25 L Glucose 127 H Lactic Acid 0.6 L Calcium 9.0 Magnesium Total Bilirubin 0.4 AST 36 Alkaline Phosphatase 73 Total Protein 7.1 Albumin 4.0 Urine Color Urine Appearance Urine pH Ur Specific [place] Urine Protein Urine Glucose (UA) Urine Ketones Urine Blood Urine Nitrite Ur Leukocyte Esterase Urine WBC (Auto) Urine RBC (Auto) 10/15/18 10/15/18 10/15/18 10:15 10:32 19:55 WBC RBC Hgb Hct MCV MCH MCHC RDW Plt Count Seg Neutrophils % Carbonic Acid 1.85 H HCO3/H2CO3 Ratio 13:1 ABG pH 7.23 L ABG pCO2 61.5 H ABG pO2 99.1 ABG HCO3 24.9 H ABG O2 Saturation 96.1 ABG Base Excess -3.5 FiO2 2L Sodium 141.9 Potassium 4.8 Chloride 101 Carbon Dioxide 33 H Anion Gap 8 BUN 45 H Creatinine 2.73 H Est GFR ( Amer) 29 L Glucose 111 H Lactic Acid Calcium 8.6 Magnesium 1.5 L Total Bilirubin AST Alkaline Phosphatase Total Protein Albumin Urine Color YELLOW Urine Appearance CLEAR Urine pH 6.0 Ur Specific [place] 1.011 Urine Protein 100 H Urine Glucose (UA) NEGATIVE Urine Ketones NEGATIVE Urine Blood SMALL H Urine Nitrite NEGATIVE Ur Leukocyte Esterase SMALL H Urine WBC (Auto) 20 Urine RBC (Auto) 3 10/16/18 06:37 WBC RBC Hgb Hct MCV MCH MCHC RDW Plt Count Seg Neutrophils % Carbonic Acid 1.85 H HCO3/H2CO3 Ratio 15:1 ABG pH 7.29 L ABG pCO2 61.5 H ABG pO2 60.5 L ABG HCO3 29.2 H ABG O2 Saturation 87.9 L ABG Base Excess 1.4 FiO2 30% Sodium Potassium Chloride Carbon Dioxide Anion Gap BUN Creatinine Est GFR ( Amer) Glucose Lactic Acid Calcium Magnesium Total Bilirubin AST Alkaline Phosphatase Total Protein Albumin Urine Color Urine Appearance Urine pH Ur Specific [place] Urine Protein Urine Glucose (UA) Urine Ketones Urine Blood Urine Nitrite Ur Leukocyte Esterase Urine WBC (Auto) Urine RBC (Auto) 10/15/18 10/15/18 09:55 09:55 Creatine Kinase 579 H CK-MB (CK-2) 4.41 Troponin I 0.067 NT-Pro-B Natriuret Pep 5950 H Impressions: Chest X-Ray 10/15/18 10:07 IMPRESSION: Left basilar atelectasis. Small effusion. Mild central vascular congestion. Assessment and Plan - Diagnosis (1) Acute respiratory failure with hypoxia and hypercapnia Is this a current diagnosis for this admission?: Yes Plan: 10/25/2018-the patient presented with increased shortness of breath likely due to congestive heart failure possibly related to his chronic kidney disease. He is a cardiac transplant. He in fact requires BiPAP at this time. His PCO2 was elevated by venous blood gas. I have ordered an arterial blood gas for the morning. We will continue his BiPAP for now. He is 18/6 with an FiO2 of 35% and a rate of 16. We will continue to try and wean the BiPAP. 10/16/2018-the patient remains on BiPAP. He is somewhat somnolent. He does smoke he has no documented diagnosis of COPD. His pulse ox this morning is 93%. His rate is between 18 and 26 and his FiO2 is 30%. He does have Xopenex available as needed. We will try to wean him from BiPAP. Because of his somnolence and current smoking I am going to obtain a blood gas to make sure his somnolence is not related to elevated PCO2. (2) Chronic renal failure, stage 4 (severe) Is this a current diagnosis for this admission?: Yes Plan: 10/15/2018-the patient was on hemodialysis earlier this year. It appears from reviewing last years labs that his creatinine jumped to greater than 7 and this is likely when he was started on hemodialysis. Since then his serum creatinines ranged from approximately 2.5 and 3.5. He still has a Vas-Cath in his right chest. He did see Dr. Morin for his kidney failure. I put a consult in for Dr. Potter. He is making excellent urine and so I do not believe dialysis will be necessary however he is quite ill and I would appreciate her input. He did respond well to a 100 mg intravenous dose of furosemide this morning. Since he has not gotten any since I have ordered an additional 100 mg this evening and will administer 80 mg every 8 hours on a daily basis and monitor his intake and output. The patient's states that for some time patient's fluid management was by dialysis. In the exam room he was having some leg cramping and since his serum potassium was normal this morning it is likely dropping and will monitor closely and supplement. I have continued all of his renal medications including calcium acetate, sodium bicarbonate, vitamin D3, folic acid and a Nephrocap daily. 10/16/2018-the patient still has his Vas-Cath in his left chest. His urine output yesterday was 3.5 L. Awaiting this morning's blood work to see if his creatinine has increased from yesterday due to the aggressive diuresis. He is a patient of Dr. Morin is. He has not required hemodialysis for approximately 6 to 8 weeks. Based on his laboratory results and ongoing urine output he may not require dialysis to remove fluid. If his creatinine spikes it might be helpful to dialyze the patient to remove fluid in this way I will be able to decrease the diuretic dose. We will otherwise continue his calcium acetate, sodium bica rbonate, Nephrocap, folate and vitamin D. (3) Acute on chronic congestive heart failure Qualifiers: Heart failure type: unspecified Qualified Code(s): I50.9 - Heart failure, unspecified Is this a current diagnosis for this admission?: Yes Plan: 10/15/2018-the patient is status post cardiac transplant 8 years ago. I could not find the results of any echocardiogram. Most of the studies are likely with his transplant physician at [facility] in [place]. His medication regimen does not include any angiotensin receptor blockers or SUDHAKAR inhibitors. We will continue his furosemide at a significantly increased dose. The patient has been accepted to [facility] and we are waiting for a bed. In the interim he has received 2 doses of 100 mg IV furosemide today. I have instituted 80 mg of furosemide every 8 hours and in addition I have added nitroglycerin paste. Drawl is seen was added for his hypertension. Morphine will be available for air hunger. We will continue to monitor intake and output. This will be much easier with his Larson catheter in place. 10/16/2018-the patient is no longer foaming of the mouth. He has distant breath sounds likely due to body habitus but is not an extremis. Because of his elevated blood pressure and tachycardia yesterday I have added hydralazine, low- dose losartan and metoprolol. I will adjust his medications based on his vital signs, laboratory studies and net fluid balance. (4) Hypertension Qualifiers: Hypertension type: essential hypertension Qualified Code(s): I10 - Essential (primary) hypertension Is this a current diagnosis for this admission?: Yes Plan: 10/25/2018-the patient's states that he typically does not have high blood pressure. Rated after that she stated that when he was in the hospital last year he had significantly elevated pressures. They tried to put "an IV "in his arm to check his pressures. In addition to increasing his furosemide I have been added hydralazine. I will try low-dose spironolactone as well. We will need to monitor his potassium level closely due to interactions with the transplant medications. 10/16/2018-the patient's blood pressure is much better this morning. He was triple over triple in the emergency department yesterday. With the adjustments in medication his blood pressure is improved. He is still tachycardic and so metoprolol has been added. We will need to monitor his blood pressure as we decrease the diuretic dose. (5) Heart transplant recipient Is this a current diagnosis for this admission?: Yes Plan: 10/16/2018-the patient will continue on his mycophenolate and tacrolimus. These are being dosed for his current renal function. He has been accepted at [facility] but there is no bed available. Dr. Anastasiya Flores is the accepting physician. I will reach out to the transfer center this morning. If his condition improves then he may be able to complete his care here, discharge and follow-up with the transplant center next week. By x-ray he has mild cardiomegaly. Await further studies at this time. Hopeful for successful transfer today. (6) Excessive anticoagulation Is this a current diagnosis for this admission?: Yes Plan: 10/15/2018-the patient is on warfarin. His normal regimen is 15 mg on Thursday and Thursday and then 10 mg on Thursday and Fridays. His INR was greater than 3.0. He does not have a mechanical valve. I am not sure of the indication for the warfarin. Am going to hold his warfarin therapy. I will check an INR daily. It is unclear why his INR is high but dietary indiscretion is always a consideration. 10/16/2018-the patient's INR was greater than 3.0 yesterday. We have held his warfarin. Today's INR will determine whether or not we initiate warfarin or hold it again today. (7) Hyperlipidemia Qualifiers: Hyperlipidemia type: unspecified Qualified Code(s): E78.5 - Hyperlipidemia, unspecified Is this a current diagnosis for this admission?: Yes Plan: 10/15/2018-we will continue statin therapy. We will substitute our formularies atorvastatin for the patient's pravastatin. 10/16/2018-continue statin therapy as above (8) Tobacco dependence due to cigarettes Is this a current diagnosis for this admission?: Yes Plan: 10/15/2018-incredibly, after a successful cardiac transplant, the patient still smokes 1/2 pack of cigarettes daily. His reports that she is trying to get him to quit. I did reinforce the same and in fact told him that he is severely compromising his recovery and overall health due to his continued smoking. 10/16/2018-the patient still smokes despite his cardiac transplant status. I will make a nicotine patch available. He was strongly encouraged to stop smoking as it will significantly impact his cardiopulmonary function. (9) Obstructive sleep apnea Is this a current diagnosis for this admission?: Yes Plan: 10/15/2018-the patient has a large neck. I did ask his if he has a diagnosis of obstructive sleep apnea. She did note that he has been referred for a sleep study. It has not been scheduled yet. We will continue him on BiPAP for his respiratory failure and this certainly will help with any obstructive apnea. 10/16/2018-as noted above the patient is currently being evaluated for obstructive sleep apnea. There is a high likelihood that he carries this diagnosis. Currently on BiPAP this is not an issue. Hopefully he will get assessed as soon as possible so that he can receive the appropriate treatment. - Time Time Spent with patient: 25-34 minutes Smoking Cessation Education: 3 to 10 minutes Medications reviewed and adjusted accordingly: Yes [facility]tic[facility]ated [facility] Within: within 24 hours - Plan Summary Plan Summary: [facility] again today.
[2018-10-16 08:19] LABS: ABSOLUTE BASOPHILS # (AUTO) 0.1 10^3/uL (0.0-0.2); ABSOLUTE LYMPHOCYTES (AUTO) 0.5 10^3/uL (0.5-4.7); ABSOLUTE MONOCYTES (AUTO) 0.6 10^3/uL (0.1-1.4); ABSOLUTE NEUT (AUTO) 7.7 10^3/uL (1.7-8.2); BASOPHILS % (AUTO) 0.6 % (0-2); EOSINOPHILS % (AUTO) 0.5 % (0-6); HEMOGLOBIN 11.3 g/dL (13.5-17.0); LYMPHOCYTES % (AUTO) 5.7 % (13-45); MEAN CORPUSCULAR HEMOGLOBIN 28.5 pg (27.0-33.4); MEAN CORPUSCULAR HGB CONC 31.4 g/dL (32.0-36.0); MEAN CORPUSCULAR VOLUME 91 fl (80-97); MONOCYTES % (AUTO) 6.4 % (3-13); PLATELET COUNT 256 10^3/uL (150-450); RED BLOOD COUNT 3.95 10^6/uL (4.35-5.55); RED CELL DISTRIBUTION WIDTH 14.8 % (11.5-14.0); SEGMENTED NEUTROPHILS % (AUTO) 86.8 % (42-78); TOTAL CELLS COUNTED % (AUTO) 100 %; WHITE BLOOD COUNT 8.9 10^3/uL (4.0-10.5)
[2018-10-16 08:24] LABS: INTERNATIONAL RATION (INR) 4.36; PROTHROMBIN TIME 42.8 SEC (11.4-15.4)
[2018-10-16 08:37] LABS: ALBUMIN 3.7 g/dL (3.5-5.0); ANION GAP 8 (5-19); BLOOD UREA NITROGEN 48 mg/dL (7-20); CALCIUM 8.4 mg/dL (8.4-10.2); CARBON DIOXIDE 32 mmol/L (22-30); CHLORIDE 101 mmol/L (98-107); GLUCOSE 89 mg/dL (75-110); PHOSPHORUS 4.7 mg/dL (2.5-4.5); POTASSIUM 5.5 mmol/L (3.6-5.0)
[2018-10-16] MEDS: MYCOPHENOLATE MOFETIL 250 MG CAPSULE PO SCH ×2 (09:03→17:38)
[2018-10-16] MEDS: CHOLECALCIFEROL (D3) 1,000 UNIT (25 MCG) TABLET PO SCH (09:03)
[2018-10-16] MEDS: SPIRONOLACTONE 25 MG TABLET PO SCH (09:03)
[2018-10-16] MEDS: CALCIUM ACETATE 667 MG CAPSULE PO SCH ×3 (09:03→17:37)
[2018-10-16] MEDS: FOLIC ACID 1 MG TABLET PO SCH (09:03)
[2018-10-16] MEDS: FAMOTIDINE 20 MG TABLET PO SCH ×2 (09:03→21:49)
[2018-10-16] MEDS ORDERED: METOPROLOL TARTRATE PF/INJ 5 MG/5 ML SDV IV ONE (09:22)
[2018-10-16] MEDS ORDERED: WARFARIN SODIUM 5 MG TABLET PO SCH ×2 (10:00→22:00)
[2018-10-16] MEDS ORDERED: SODIUM BICARBONATE 650 MG TABLET PO SCH (10:00)
[2018-10-16] MEDS ORDERED: MAGNESIUM OXIDE 400 MG TABLET PO SCH (10:00)
[2018-10-16] MEDS ORDERED: SODIUM POLYSTYRENE SULFONATE 15 GM/60 ML PO ONE (10:00)
[2018-10-16] MEDS: IPRATROPIUM/ALBUTEROL 0.5-2.5 MG/3 ML AMPUL NEB SCH ×3 (10:18→19:56)
[2018-10-16] MEDS: MAGNESIUM OXIDE 400 MG TABLET PO SCH ×2 (11:05→17:37)
--- NOTE | 2018-10-16 12:25 | RADIOLOGY REPORT (SQ) ---
EXAM DESCRIPTION: CHEST SINGLE VIEW COMPLETED DATE/TIME: 10/16/2018 8:03 am REASON FOR STUDY: pulmonary edema COMPARISON: 10/15/2018 NUMBER OF VIEWS: One view. TECHNIQUE: Single frontal radiographic image of the chest acquired. LIMITATIONS: Body habitus. Positioning. FINDINGS: LUNGS AND PLEURA: Small left pleural effusion. Low lung volumes. MEDIASTINUM AND HEART: Stable heart size and mediastinal structures. SUPPORT DEVICES: Appropriate location without change. BONY STRUCTURES: No acute findings. HARDWARE: CABG. OTHER: No other significant finding. IMPRESSION: STABLE APPEARANCE OF THE CHEST. SUPPORT DEVICES UNCHANGED. Reading location - IP/workstation name: [email or web address]
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
[2018-10-16] MEDS: FOLIC ACID/VITAMIN B COMP W-C CAPSULE PO SCH (17:37)
[2018-10-16] MEDS ORDERED: PHYTONADIONE 5 MG TABLET PO ONE (19:10)
[2018-10-16 20:49] LABS: ANION GAP 6 (5-19); BLOOD UREA NITROGEN 55 mg/dL (7-20); CALCIUM 7.8 mg/dL (8.4-10.2); CARBON DIOXIDE 35 mmol/L (22-30); CHLORIDE 98 mmol/L (98-107); GLUCOSE 153 mg/dL (75-110); POTASSIUM 4.6 mmol/L (3.6-5.0)
[2018-10-16] MEDS ORDERED: PHYTONADIONE 5 MG TABLET ONE (20:57)
[2018-10-16] MEDS: ATORVASTATIN CALCIUM 40 MG TABLET PO SCH (21:49)
[2018-10-16] MEDS: ASPIRIN 81 MG TABLET, ENT COATED PO SCH (21:50)
[2018-10-16] MEDS ORDERED: WARFARIN SODIUM 7.5 MG TABLET PO SCH (22:00)
[2018-10-16] MEDS: MORPHINE SULFATE 10 MG/ML INJ IV PRN (23:33)
[2018-10-17] MEDS: IPRATROPIUM/ALBUTEROL 0.5-2.5 MG/3 ML AMPUL NEB SCH ×4 (01:34→20:21)
[2018-10-17] MEDS: NITROGLYCERIN 2% OINTMENT 1 GM PACKET TP SCH ×4 (05:19→23:02)
[2018-10-17] MEDS: HYDRALAZINE HCL 10 MG TABLET PO SCH ×4 (05:21→23:02)
[2018-10-17] MEDS ORDERED: FUROSEMIDE INJ/PF 100 MG/10 ML SDV IV SCH (06:00)
[2018-10-17 06:07] LABS: ABSOLUTE BASOPHILS # (AUTO) 0.1 10^3/uL (0.0-0.2); ABSOLUTE EOSINOPHILS # (AUTO) 0.1 10^3/uL (0.0-0.6); ABSOLUTE LYMPHOCYTES (AUTO) 0.8 10^3/uL (0.5-4.7); ABSOLUTE NEUT (AUTO) 7.5 10^3/uL (1.7-8.2); BASOPHILS % (AUTO) 0.8 % (0-2); HEMATOCRIT 33.8 % (37.9-51.0); HEMOGLOBIN 10.5 g/dL (13.5-17.0); LYMPHOCYTES % (AUTO) 8.1 % (13-45); MEAN CORPUSCULAR HEMOGLOBIN 28.3 pg (27.0-33.4); MEAN CORPUSCULAR HGB CONC 31.1 g/dL (32.0-36.0); MEAN CORPUSCULAR VOLUME 91 fl (80-97); MONOCYTES % (AUTO) 10.8 % (3-13); PLATELET COUNT 221 10^3/uL (150-450); RED BLOOD COUNT 3.72 10^6/uL (4.35-5.55); RED CELL DISTRIBUTION WIDTH 14.8 % (11.5-14.0); SEGMENTED NEUTROPHILS % (AUTO) 79.3 % (42-78); TOTAL CELLS COUNTED % (AUTO) 100 %; WHITE BLOOD COUNT 9.5 10^3/uL (4.0-10.5)
[2018-10-17 06:21] LABS: INTERNATIONAL RATION (INR) 2.45
[2018-10-17 06:22] LABS: ALBUMIN 3.5 g/dL (3.5-5.0); ANION GAP 8 (5-19); BLOOD UREA NITROGEN 53 mg/dL (7-20); CALCIUM 7.9 mg/dL (8.4-10.2); CARBON DIOXIDE 34 mmol/L (22-30); CHLORIDE 99 mmol/L (98-107); GLUCOSE 116 mg/dL (75-110); PHOSPHORUS 4.9 mg/dL (2.5-4.5); POTASSIUM 4.5 mmol/L (3.6-5.0)
[2018-10-17] MEDS: MAGNESIUM OXIDE 400 MG TABLET PO SCH ×3 (08:31→17:50)
--- NOTE | 2018-10-17 09:22 | PDOC PROGRESS REPORT ---
Subjective Progress Note for:: 10/17/18 Subjective:: The patient is feeling better today. There is no more foaming at the mouth. He is on nasal cannula this morning. He states that he gets short walking to the bathroom (10 to 12 feet) but with rest feels better. He feels that he is approximately prison back to baseline. Reason For Visit: ACUTE KIDNEY FAILURE Physical Exam Vital Signs: Temp Pulse Resp BP Pulse Ox 98.2 F 102 H 20 148/85 H 98 10/17/18 08:28 10/17/18 08:28 10/17/18 08:28 10/17/18 08:28 10/17/18 08:28 Intake & Output 10/16/18 10/17/18 10/18/18 06:59 06:59 06:59 Intake Total 250 930 Output Total 3775 235 Balance -3525 695 Weight 105.3 kg 107.1 kg General appearance: PRESENT: cooperative, mild distress, obese, well-developed Head exam: PRESENT: atraumatic, normocephalic Eye exam: PRESENT: conjunctiva pink. ABSENT: scleral icterus Ear exam: PRESENT: normal external ear exam. ABSENT: bleeding, drainage Mouth exam: PRESENT: dry mucosa, tongue midline Neck exam: ABSENT: carotid bruit, JVD, lymphadenopathy Respiratory exam: PRESENT: prolonged expiratory phas, rales - Bilaterally. Less pronounced than yesterday., tachypnea, wheezes - Sporadic wheezes bilaterally. Expiratory mostly.. ABSENT: crackles, rhonchi Cardiovascular exam: PRESENT: RRR, +S1, +S2 - Intermittent tachycardia GI/Abdominal exam: PRESENT: normal bowel sounds, soft. ABSENT: distended - Protuberant abdomen, tenderness Rectal exam: PRESENT: deferred Gentrourinary exam: ABSENT: indwelling catheter Extremities exam: PRESENT: pedal edema - Significantly decreased edema from admission. Patient reports close to baseline. Musculoskeletal exam: PRESENT: ambulatory, normal inspection Neurological exam: PRESENT: alert, awake, oriented to person, oriented to place, oriented to time, oriented to situation, CN II-XII grossly intact Psychiatric exam: PRESENT: appropriate affect. ABSENT: agitated, anxious Focused psych exam: ABSENT: delusional, restlessness Skin exam: PRESENT: dry, rash - Slight irritation around the nose from the BiPAP mask., warm Results Laboratory Results: 10/17/18 05:34 10/17/18 05:34 10/16/18 10/17/18 10/17/18 20:15 05:34 05:34 WBC 9.5 RBC 3.72 L Hgb 10.5 L Hct 33.8 L MCV 91 MCH 28.3 MCHC 31.1 L RDW 14.8 H Plt Count 221 Seg Neutrophils % 79.3 H Sodium 139.3 140.6 Potassium 4.6 4.5 Chloride 98 99 Carbon Dioxide 35 H 34 H Anion Gap 6 8 BUN 55 H 53 H Creatinine 3.75 H 4.00 H Est GFR ( Amer) 20 L 19 L Glucose 153 H 116 H Calcium 7.8 L 7.9 L Phosphorus 4.9 H Magnesium 1.6 1.7 Albumin 3.5 10/15/18 10/15/18 10/16/18 09:55 09:55 08:00 Creatine Kinase 579 H CK-MB (CK-2) 4.41 Troponin I 0.067 NT-Pro-B Natriuret Pep 5950 H 5090 H Impressions: Chest X-Ray 10/16/18 06:00 IMPRESSION: STABLE APPEARANCE OF THE CHEST. SUPPORT DEVICES UNCHANGED. Assessment and Plan - Diagnosis (1) Acute respiratory failure with hypoxia and hypercapnia Is this a current diagnosis for this admission?: Yes Plan: 10/25/2018-the patient presented with increased shortness of breath likely due to congestive heart failure possibly related to his chronic kidney disease. He is a cardiac transplant. He in fact requires BiPAP at this time. His PCO2 was elevated by venous blood gas. I have ordered an arterial blood gas for the morning. We will continue his BiPAP for now. He is 18/6 with an FiO2 of 35% and a rate of 16. We will continue to try and wean the BiPAP. 10/16/2018-the patient remains on BiPAP. He is somewhat somnolent. He does smoke he has no documented diagnosis of COPD. His pulse ox this morning is 93%. His rate is between 18 and 26 and his FiO2 is 30%. He does have Xopenex available as needed. We will try to wean him from BiPAP. Because of his somnolence and current smoking I am going to obtain a blood gas to make sure his somnolence is not related to elevated PCO2. 10/17/2018-the patient is resting on nasal cannula this morning at 4 L. His breathing appears somewhat more comfortable than yesterday and he is off of BiPAP. His urine output has decreased. It is very possible that he has underlying COPD that is contributing and currently undertreated. I am going to add budesonide and intravenous steroids. (2) Chronic renal failure, stage 4 (severe) Is this a current diagnosis for this admission?: Yes Plan: 10/15/2018-the patient was on hemodialysis earlier this year. It appears from reviewing last years labs that his creatinine jumped to greater than 7 and this is likely when he was started on hemodialysis. Since then his serum creatinines ranged from approximately 2.5 and 3.5. He still has a Vas-Cath in his right chest. He did see Dr. Morin for his kidney failure. I put a consult in for Dr. Potter. He is making excellent urine and so I do not believe dialysis will be necessary however he is quite ill and I would appreciate her input. He did respond well to a 100 mg intravenous dose of furosemide this morning. Since he has not gotten any since I have ordered an additional 100 mg this evening and will administer 80 mg every 8 hours on a daily basis and monitor his intake and output. The patient's states that for some time patient's fluid management was by dialysis. In the exam room he was having some leg cramping and since his serum potassium was normal this morning it is likely dropping and will monitor closely and supplement. I have continued all of his renal medications including calcium acetate, sodium bicarbonate, vitamin D3, folic acid and a Nephrocap daily. 10/16/2018-the patient still has his Vas-Cath in his left chest. His urine output yesterday was 3.5 L. Awaiting this morning's blood work to see if his creatinine has increased from yesterday due to the aggressive diuresis. He is a patient of Dr. Morin is. He has not required hemodialysis for approximately 6 to 8 weeks. Based on his laboratory results and ongoing urine output he may not require dialysis to remove fluid. If his creatinine spikes it might be helpful to dialyze the patient to remove fluid in this way I will be able to decrease the diuretic dose. We will otherwise continue his calcium acetate, sodium bicarbonate, Nephrocap, folate and vitamin D. 10/17/2018-urine output has decreased. The patient feels better and there is no more foaming at the mouth. He is feeling better and the edema is down significantly. His creatinine is up to 4.0 and BUN appears stable at 54. I am going to back off on his furosemide as COPD could be a contributing factor to his shortness of breath as well. (3) Acute on chronic congestive heart failure Qualifiers: Heart failure type: unspecified Qualified Code(s): I50.9 - Heart failure, unspecified Is this a current diagnosis for this admission?: Yes Plan: 10/15/2018-the patient is status post cardiac transplant 8 years ago. I could not find the results of any echocardiogram. Most of the studies are likely with his transplant physician at [facility] in [place]. His medication regimen does not include any angiotensin receptor blockers or SUDHAKAR inhibitors. We will continue his furosemide at a significantly increased dose. The patient has been accepted to [facility] and we are waiting for a bed. In the interim he has received 2 doses of 100 mg IV furosemide today. I have instituted 80 mg of furosemide every 8 hours and in addition I sheehan ve added nitroglycerin paste. Drawl is seen was added for his hypertension. Morphine will be available for air hunger. We will continue to monitor intake and output. This will be much easier with his Larson catheter in place. 10/16/2018-the patient is no longer foaming of the mouth. He has distant breath sounds likely due to body habitus but is not an extremis. Because of his elevated blood pressure and tachycardia yesterday I have added hydralazine, low- dose losartan and metoprolol. I will adjust his medications based on his vital signs, laboratory studies and net fluid balance. 10/17/2018-after researching heart transplant rejection the evaluation can be difficult Dobutamine stress echo is recommended to avoid contrast in renal failure patients. Coronary angiography is also recommended. The patient reports not having any of this for some time now. He in fact had his heart transplant at [facility]. I am trying to obtain records. In the interim I am decreasing the furosemide due to his increased serum creatinine. I am increasing the regimen for COPD. (4) Hypertension Qualifiers: Hypertension type: essential hypertension Qualified Code(s): I10 - Essential (primary) hypertension Is this a current diagnosis for this admission?: Yes Plan: 10/25/2018-the patient's states that he typically does not have high blood pressure. Rated after that she stated that when he was in the hospital last year he had significantly elevated pressures. They tried to put "an IV "in his arm to check his pressures. In addition to increasing his furosemide I have been added hydralazine. I will try low-dose spironolactone as well. We will need to monitor his potassium level closely due to interactions with the transplant medications. 10/16/2018-the patient's blood pressure is much better this morning. He was triple over triple in the emergency department yesterday. With the adjustments in medication his blood pressure is improved. He is still tachycardic and so metoprolol has been added. We will need to monitor his blood pressure as we decrease the diuretic dose. 10/17/2018-the blood pressure is still higher than desired. He was triple over triple admission and so this is acceptable for the time being. He has been borderline tachycardic and so I am going to increase his metoprolol. (5) Heart transplant recipient Is this a current diagnosis for this admission?: Yes Plan: 10/16/2018-the patient will continue on his mycophenolate and tacrolimus. These are being dosed for his current renal function. He has been accepted at [facility] but there is no bed available. Dr. Anastasiya Flores is the accepting physician. I will reach out to the transfer center this morning. If his condition improves then he may be able to complete his care here, discharge and follow-up with the transplant center next week. By x-ray he has mild cardiomegaly. Await further studies at this time. Hopeful for successful transfer today. 10/17/2018-the patient reports that he in fact had his transplant at [facility]. I am trying to reach out and obtain records and then likely speak to the transplant physician tension worker. I am introduced IV steroids predominantly for COPD but if there is any type of rejection this should help treat it. Coronary artery vasculopathy and transplant patients is sometimes difficult to assess. I have ordered an echocardiogram and I am trying to obtain the last echo he had at [facility] as well. (6) Excessive anticoagulation Is this a current diagnosis for this admission?: Yes Plan: 10/15/2018-the patient is on warfarin. His normal regimen is 15 mg on Thursday and Thursday and then 10 mg on Thursday and Fridays. His INR was greater than 3.0. He does not have a mechanical valve. I am not sure of the indication for the warfarin. Am going to hold his warfarin therapy. I will check an INR daily. It is unclear why his INR is high but dietary indiscretion is always a consideration. 10/16/2018-the patient's INR was greater than 3.0 yesterday. We have held his warfarin. Today's INR will determine whether or not we initiate warfarin or hold it again today. 10/17/2018-the patient states that his INR is currently therapeutic. He was unable to tell me why he was on the Coumadin. He states it was from a sore on his leg. He is not in atrial fibrillation. Hopefully there will be information in the medical records from [facility]. If not we will consider discontinuing the warfarin. Because he did give vitamin K I will administer a dose of warfarin to avoid subtherapeutic levels. (7) Hyperlipidemia Qualifiers: Hyperlipidemia type: unspecified Qualified Code(s): E78.5 - Hyperlipidemia, unspecified Is this a current diagnosis for this admission?: Yes Plan: 10/15/2018-we will continue statin therapy. We will substitute our formularies atorvastatin for the patient's pravastatin. 10/16/2018-continue statin therapy as above 10/17/2018-LDL is greater than 100. I will increase the atorvastatin to 80 mg to maximize benefit for the patient. (8) Tobacco dependence due to cigarettes Is this a current diagnosis for this admission?: Yes Plan: 10/15/2018-incredibly, after a successful cardiac transplant, the patient still smokes 1/2 pack of cigarettes daily. His reports that she is trying to get him to quit. I did reinforce the same and in fact told him that he is severely compromising his recovery and overall health due to his continued smoking. 10/16/2018-the patient still smokes despite his cardiac transplant status. I will make a nicotine patch available. He was strongly encouraged to stop smoking as it will significantly impact his cardiopulmonary function. 10/17/2018-continue availability of nicotine patch. Hopefully this illness will cause the patient to rethink his smoking. (9) Obstructive sleep apnea Is this a current diagnosis for this admission?: Yes Plan: 10/15/2018-the patient has a large neck. I did ask his if he has a diagnosis of obstructive sleep apnea. She did note that he has been referred for a sleep study. It has not been scheduled yet. We will continue him on BiPAP for his respiratory failure and this certainly will help with any obstructive apnea. 10/16/2018-as noted above the patient is currently being evaluated for obstructive sleep apnea. There is a high likelihood that he carries this diagnosis. C urrently on BiPAP this is not an issue. Hopefully he will get assessed as soon as possible so that he can receive the appropriate treatment. 10/17/2018-I do believe the patient does have obstructive sleep apnea. He has been on the BiPAP at night every night. We are trialing nasal cannula during the day. We might be able to change him to CPAP at night but it is likely he will need BiPAP. - Time Time Spent with patient: 25-34 minutes Smoking Cessation Education: 3 to 10 minutes Medications reviewed and adjusted accordingly: Yes
[2018-10-17] MEDS ORDERED: METHYLPREDNISOLONE INJ 125 MG/2 ML SDV IV ONE (10:00)
[2018-10-17] MEDS: FOLIC ACID 1 MG TABLET PO SCH (11:13)
[2018-10-17] MEDS: CHOLECALCIFEROL (D3) 1,000 UNIT (25 MCG) TABLET PO SCH (11:14)
[2018-10-17] MEDS: FAMOTIDINE 20 MG TABLET PO SCH ×2 (11:14→22:23)
[2018-10-17] MEDS: MYCOPHENOLATE MOFETIL 250 MG CAPSULE PO SCH ×2 (11:16→17:49)
[2018-10-17] MEDS: SPIRONOLACTONE 25 MG TABLET PO SCH (13:12)
[2018-10-17] MEDS: TACROLIMUS ANHYDROUS 1 MG CAPSULE PO SCH ×2 (13:12→22:24)
[2018-10-17] MEDS: CALCIUM ACETATE 667 MG CAPSULE PO SCH ×3 (13:13→17:48)
[2018-10-17] MEDS: METOPROLOL SUCCINATE 50 MG TAB.SR.24H PO SCH (13:14)
[2018-10-17] MEDS: METHYLPREDNISOLONE INJ 40 MG/1 ML SDV IV SCH ×2 (13:30→22:23)
[2018-10-17 14:34] LABS: ANION GAP 10 (5-19); BLOOD UREA NITROGEN 54 mg/dL (7-20); CARBON DIOXIDE 33 mmol/L (22-30); CHLORIDE 96 mmol/L (98-107); GLUCOSE 135 mg/dL (75-110); POTASSIUM 4.4 mmol/L (3.6-5.0)
[2018-10-17] MEDS: FOLIC ACID/VITAMIN B COMP W-C CAPSULE PO SCH (17:48)
--- NOTE | 2018-10-17 18:40 | EKG REPORT ---
SEVERITY:- OTHERWISE NORMAL ECG - SINUS TACHYCARDIA : Confirmed by: Fatimah Vargas 17-Oct-2018 18:39:38
--- NOTE | 2018-10-17 18:40 | EKG REPORT ---
SEVERITY:- BORDERLINE ECG - SINUS TACHYCARDIA BORDERLINE PROLONGED QT INTERVAL : Confirmed by: Fatimah Vargas 17-Oct-2018 18:39:58
--- NOTE | 2018-10-17 18:40 | EKG REPORT ---
SEVERITY:- NORMAL ECG - SINUS RHYTHM : Confirmed by: Fatimah Vargas 17-Oct-2018 18:39:35
[2018-10-17] MEDS: BUDESONIDE NEB 0.25 MG/2 ML AMPUL NEB SCH (20:21)
[2018-10-17 21:20] LABS: ARTERIAL BLOOD BASE EXCESS 6.2 mmol/L; ARTERIAL BLOOD H2CO3 2.19 mmol/L (1.05-1.35); ARTERIAL BLOOD HCO3 34.8 mmol/L (20-24); ARTERIAL BLOOD O2 SATURATION 97.5 % (94-98); ARTERIAL BLOOD PO2 113.4 mmHg (80-100)
[2018-10-17 21:21] LABS: ARTERIAL BLOOD FIO2 3L
[2018-10-17 21:55] LABS: ARTERIAL BLOOD PCO2 72.6 mmHg (35-45)
[2018-10-17] MEDS ORDERED: WARFARIN SODIUM 7.5 MG TABLET PO SCH (22:00)
[2018-10-17] MEDS ORDERED: ATORVASTATIN CALCIUM 40 MG TABLET PO SCH (22:00)
[2018-10-17] MEDS: ASPIRIN 81 MG TABLET, ENT COATED PO SCH (22:23)
[2018-10-17] MEDS: MORPHINE SULFATE 10 MG/ML INJ IV PRN (22:30)
[2018-10-18] MEDS: IPRATROPIUM/ALBUTEROL 0.5-2.5 MG/3 ML AMPUL NEB SCH ×4 (01:43→19:47)
[2018-10-18] MEDS: NITROGLYCERIN 2% OINTMENT 1 GM PACKET TP SCH ×4 (05:40→23:44)
[2018-10-18] MEDS: HYDRALAZINE HCL 10 MG TABLET PO SCH ×3 (05:40→19:35)
[2018-10-18] MEDS: METHYLPREDNISOLONE INJ 40 MG/1 ML SDV IV SCH ×3 (05:41→23:45)
[2018-10-18 07:00] LABS: ARTERIAL BLOOD BASE EXCESS 0.1 mmol/L; ARTERIAL BLOOD FIO2 30%; ARTERIAL BLOOD H2CO3 1.79 mmol/L (1.05-1.35); ARTERIAL BLOOD HCO3 27.7 mmol/L (20-24); ARTERIAL BLOOD O2 SATURATION 92.8 % (94-98); ARTERIAL BLOOD PCO2 59.6 mmHg (35-45); ARTERIAL BLOOD PH 7.29 (7.35-7.45); ARTERIAL BLOOD TOTAL CO2 29.5 mmol/L (23-27)
[2018-10-18 07:46] LABS: INTERNATIONAL RATION (INR) 1.24; PROTHROMBIN TIME 15.7 SEC (11.4-15.4)
[2018-10-18 07:55] LABS: HEMATOCRIT 31.3 % (37.9-51.0); HEMOGLOBIN 9.9 g/dL (13.5-17.0); MEAN CORPUSCULAR HEMOGLOBIN 28.8 pg (27.0-33.4); MEAN CORPUSCULAR HGB CONC 31.7 g/dL (32.0-36.0); MEAN CORPUSCULAR VOLUME 91 fl (80-97); PLATELET COUNT 219 10^3/uL (150-450); RED BLOOD COUNT 3.44 10^6/uL (4.35-5.55); RED CELL DISTRIBUTION WIDTH 14.7 % (11.5-14.0); WHITE BLOOD COUNT 6.7 10^3/uL (4.0-10.5)
[2018-10-18] MEDS: BUDESONIDE NEB 0.25 MG/2 ML AMPUL NEB SCH ×2 (08:07→19:47)
[2018-10-18 08:12] LABS: ALBUMIN 3.6 g/dL (3.5-5.0); ANION GAP 7 (5-19); BLOOD UREA NITROGEN 58 mg/dL (7-20); CARBON DIOXIDE 35 mmol/L (22-30); CHLORIDE 96 mmol/L (98-107); GLUCOSE 155 mg/dL (75-110); PHOSPHORUS 4.1 mg/dL (2.5-4.5)
[2018-10-18 08:34] LABS: POTASSIUM 5.9 mmol/L (3.6-5.0)
[2018-10-18 08:40] LABS: ABSOLUTE LYMPHOCYTES# (MANUAL) 0.2 10^3/uL (0.5-4.7); ABSOLUTE MONOCYTES # (MANUAL) 0.1 10^3/uL (0.1-1.4); BASOPHILS % (MANUAL) 0 % (0-2); EOSINOPHILS % (MANUAL) 0 % (0-6); LYMPHOCYTES % (MANUAL) 3 % (13-45); MONOCYTES % (MANUAL) 2 % (3-13); SEGMENTED NEUTROPHILS % (MAN) 95 % (42-78); TOTAL CELLS COUNTED 100
[2018-10-18 08:41] LABS: ANISOCYTOSIS SLIGHT; PLATELET COMMENT ADEQUATE; POIKILOCYTOSIS SLIGHT; STOMATOCYTES SLIGHT
[2018-10-18] MEDS: METOPROLOL SUCCINATE 50 MG TAB.SR.24H PO SCH (09:14)
[2018-10-18] MEDS: CALCIUM ACETATE 667 MG CAPSULE PO SCH ×3 (09:15→16:42)
[2018-10-18] MEDS: MAGNESIUM OXIDE 400 MG TABLET PO SCH ×3 (09:15→16:42)
[2018-10-18] MEDS: FAMOTIDINE 20 MG TABLET PO SCH (09:16)
[2018-10-18] MEDS: FOLIC ACID 1 MG TABLET PO SCH (09:16)
[2018-10-18] MEDS: CHOLECALCIFEROL (D3) 1,000 UNIT (25 MCG) TABLET PO SCH (09:16)
[2018-10-18] MEDS: SPIRONOLACTONE 25 MG TABLET PO SCH (09:17)
[2018-10-18] MEDS: TACROLIMUS ANHYDROUS 1 MG CAPSULE PO SCH ×2 (09:18→23:45)
[2018-10-18] MEDS: MYCOPHENOLATE MOFETIL 250 MG CAPSULE PO SCH ×2 (09:18→19:36)
[2018-10-18] MEDS ORDERED: SODIUM POLYSTYRENE SULFONATE 15 GM/60 ML PO ONE ×2 (10:30→15:45)
[2018-10-18] MEDS ORDERED: ACETAMINOPHEN 325 MG TABLET PO PRN (11:04)
[2018-10-18] MEDS ORDERED: ONDANSETRON 4 MG TAB.RAPDIS PO PRN (11:30)
--- NOTE | 2018-10-18 13:02 | PDOC PROGRESS REPORT ---
Subjective Progress Note for:: 10/18/18 Reason For Visit: Patient seen today in the hospital. He is feeling some better than when he came in on admission. Patient is a poor historian and therefore discussions were also done with his over the phone. Chart review was done and discussions were also done with his treating nurse. Patient was on BiPAP last night but was not very cooperative. He denies any history of headaches, chest pains. He thinks his edema is a whole lot better. Appetite is pretty good. No history of nausea vomiting or itching spells. Labs and medications were reviewed. His current creatinine is 4.4 compared to his admission of 3.0 which is his baseline. Is also anemic with a hemoglobin of eight 9.9. On review of his notes and medications I note that he was begun on high dose of IV furosemide which has been progressively tapered down to the point of having being discontinued. His total intake/output is approximately 3 L / 4.7 L. However he has been continuing on spironolactone which probably has resulted in his potassium today being high at 5.9. He denies any history of pain or swelling or discharge around his left IJ catheter which has been in place when he was initiated on hemodialysis earlier this year and was discontinued in June on a diagnosis of JUDITH with good response. 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 He states he get his transplant medications from the [facility] in [place]. He admits to noncompliance with diet. Physical Exam Vital Signs: Temp Pulse Resp BP Pulse Ox 98.6 F 94 22 H 132/77 H 98 10/18/18 08:00 10/18/18 08:00 10/18/18 08:00 10/18/18 08:00 10/18/18 08:00 Intake & Output 10/17/18 10/18/18 10/19/18 06:59 06:59 06:59 Intake Total 930 1745 Output Total 235 700 Balance 695 1045 Weight 107.1 kg 108.4 kg General appearance: PRESENT: no acute distress Respiratory exam: PRESENT: clear to auscultation óscar, decreased breath sounds. ABSENT: crackles Cardiovascular exam: PRESENT: +S1, +S2. ABSENT: rubs GI/Abdominal exam: PRESENT: normal bowel sounds, soft. ABSENT: organomegaly, tenderness Extremities exam: ABSENT: pedal edema Neurological exam: PRESENT: alert, awake, oriented to person, oriented to place, other - No asterixis Skin exam: ABSENT: erythema, mottled, rash Results Laboratory Results: 10/18/18 07:06 10/18/18 07:06 10/17/18 10/17/18 10/17/18 14:07 14:07 20:31 WBC RBC Hgb Hct MCV MCH MCHC RDW Plt Count Seg Neutrophils % Carbonic Acid 2.19 H HCO3/H2CO3 Ratio 15:1 ABG pH 7.30 L ABG pCO2 72.6 H* ABG pO2 113.4 H ABG HCO3 34.8 H ABG O2 Saturation 97.5 ABG Base Excess 6.2 FiO2 3L Sodium 139.0 Potassium 4.4 Chloride 96 L Carbon Dioxide 33 H Anion Gap 10 BUN 54 H Creatinine 3.87 H Est GFR ( Amer) 19 L Glucose 135 H Calcium 8.0 L Phosphorus Magnesium 1.8 Albumin 10/18/18 10/18/18 10/18/18 06:40 07:06 07:06 WBC 6.7 RBC 3.44 L Hgb 9.9 L Hct 31.3 L MCV 91 MCH 28.8 MCHC 31.7 L RDW 14.7 H Plt Count 219 Seg Neutrophils % Not Reportable Carbonic Acid 1.79 H HCO3/H2CO3 Ratio 15:1 ABG pH 7.29 L ABG pCO2 59.6 H ABG pO2 74.0 L ABG HCO3 27.7 H ABG O2 Saturation 92.8 L ABG Base Excess 0.1 FiO2 30% Sodium 137.7 Potassium 5.9 H D Chloride 96 L Carbon Dioxide 35 H Anion Gap 7 BUN 58 H Creatinine 4.43 H Est GFR ( Amer) 16 L Glucose 155 H Calcium 8.0 L Phosphorus 4.1 Magnesium 1.9 Albumin 3.6 10/15/18 10:32 Catheterized Urine Urine Culture - Final NO GROWTH 2 DAYS 10/15/18 10/15/18 10/16/18 09:55 09:55 08:00 Creatine Kinase 579 H CK-MB (CK-2) 4.41 Troponin I 0.067 NT-Pro-B Natriuret Pep 5950 H 5090 H 10/17/18 14:07 Creatine Kinase CK-MB (CK-2) Troponin I 0.055 NT-Pro-B Natriuret Pep Impressions: Chest X-Ray 10/16/18 06:00 IMPRESSION: STABLE APPEARANCE OF THE CHEST. SUPPORT DEVICES UNCHANGED. Assessment & Plan - Diagnosis (1) Acute on chronic congestive heart failure Qualifiers: Heart failure type: unspecified Qualified Code(s): I50.9 - Heart failure, unspecified Is this a current diagnosis for this admission?: Yes Plan: Looks like he has responded very well to conservative management including high- dose of diuretics. However he looks like currently he is over diuresed and looks like he is rather dehydrated. Will discontinue the spironolactone obviously also because of hyperkalemia. Encourage p.o. fluid intake. No indications for renal replacements at the moment. (2) Chronic renal failure, stage 4 (severe) Is this a current diagnosis for this admission?: Yes Plan: Has got acute worsening of his renal functions where his baseline creatinine is around 3 as per notes I looked at from the office when he was last seen here in July. Patient did have transient hemodialysis for 3 to 4 months and was discontinued in June 2018. He has a right IJ catheter which does not look to be infected. This catheter needs to be removed prior to his discharge if he does not require hemodialysis. He should respond to conservative management including holding off on the diuretics as he seems to responded from his acute on chronic congestive heart failure. Patient needs to be more compliant with his diet hopefully. Is also possible that he has got an element of acute rhabdomyolysis given his high CPK. I am going to temporarily hold off on his statins for now and follow the numbers. He needs to be initiated on calcitriol given his renal osteodystrophy and his high PTH.Potassium needs to be watched carefully but I believe that his current hyperkalemia was caused by spironolactone which should be very judiciously used in this gentleman. (3) Acute respiratory failure with hypoxia and hypercapnia Is this a current diagnosis for this admission?: Yes Plan: Currently improving. Continue on current management as per hospitalist. (4) Anemia in chronic kidney disease (CKD) Is this a current diagnosis for this admission?: Yes Plan: Will initiate studies and see if he qualifies for initiation of erythropoietin. Monitor. (5) Heart transplant recipient Is this a current diagnosis for this admission?: Yes Plan: Continue on his anti-rejection medications including tacrolimus and CellCept. (6) Hyperkalemia Is this a current diagnosis for this admission?: Yes Plan: Most likely from the spironolactone. Will discontinue spironolactone and treat his hyperkalemia with Kayexalate. Discussed with nurse. (7) Hypertension Qualifiers: Hypertension type: essential hypertension Qualified Code(s): I10 - Essential (primary) hypertension Is this a current diagnosis for this admission?: Yes Plan: Controlled. Monitor. (8) Obstructive sleep apnea Is this a current diagnosis for this admission?: Yes (9) Renal osteodystrophy Is this a current diagnosis for this admission?: Yes Plan: Start calcitriol. Monitor. (10) Tobacco dependence due to cigarettes Is this a current diagnosis for this admission?: Yes Plan: Advised on discontinuation of cigarettes for obvious reasons.
[2018-10-18] MEDS: FOLIC ACID/VITAMIN B COMP W-C CAPSULE PO SCH (15:32)
--- NOTE | 2018-10-18 22:46 | PDOC PROGRESS REPORT ---
Subjective Progress Note for:: 10/18/18 Subjective:: The patient is sitting at the edge of the bed. The staff reports that he was argumentative if not combative last night. It may have been due to the large steroid dose that I instituted for possible chronic obstructive pulmonary disease. He is sitting on the edge of the bed and quite calm today. In fact could not believe that he acted that way as he reports that he is normally very cooperative. Reason For Visit: ACUTE KIDNEY FAILURE Physical Exam Vital Signs: Temp Pulse Resp BP Pulse Ox 97.9 F 91 18 158/90 H 97 10/18/18 19:26 10/18/18 19:48 10/18/18 19:48 10/18/18 19:26 10/18/18 19:48 Intake & Output 10/17/18 10/18/18 10/19/18 06:59 06:59 06:59 Intake Total 930 1745 960 Output Total 235 700 Balance 695 1045 960 Weight 107.1 kg 108.4 kg General appearance: PRESENT: no acute distress, cooperative, well-developed Head exam: PRESENT: atraumatic, normocephalic Eye exam: PRESENT: conjunctival injection, conjunctiva pink. ABSENT: scleral icterus Ear exam: PRESENT: normal external ear exam. ABSENT: bleeding, drainage Mouth exam: PRESENT: moist, tongue midline, other - Hoarse voice Neck exam: ABSENT: carotid bruit, JVD, lymphadenopathy Respiratory exam: PRESENT: clear to auscultation óscar, symmetrical, unlabored. ABSENT: accessory muscle use, rales, rhonchi, tachypnea, wheezes Cardiovascular exam: PRESENT: RRR, +S1, +S2, systolic murmur - 2/6 Pulses: PRESENT: normal dorsalis pedis pul GI/Abdominal exam: PRESENT: normal bowel sounds, soft. ABSENT: distended, tenderness Rectal exam: PRESENT: deferred Gentrourinary exam: ABSENT: indwelling catheter Extremities exam: ABSENT: pedal edema Musculoskeletal exam: PRESENT: ambulatory, normal inspection Neurological exam: PRESENT: alert, awake, oriented to person, oriented to place, oriented to time, oriented to situation, CN II-XII grossly intact Psychiatric exam: PRESENT: appropriate affect. ABSENT: agitated, anxious Focused psych exam: ABSENT: delusional, restlessness Skin exam: PRESENT: dry, warm. ABSENT: rash Results Laboratory Results: 10/18/18 07:06 10/18/18 07:06 10/18/18 10/18/18 10/18/18 06:40 07:06 07:06 WBC 6.7 RBC 3.44 L Hgb 9.9 L Hct 31.3 L MCV 91 MCH 28.8 MCHC 31.7 L RDW 14.7 H Plt Count 219 Seg Neutrophils % Not Reportable Carbonic Acid 1.79 H HCO3/H2CO3 Ratio 15:1 ABG pH 7.29 L ABG pCO2 59.6 H ABG pO2 74.0 L ABG HCO3 27.7 H ABG O2 Saturation 92.8 L ABG Base Excess 0.1 FiO2 30% Sodium 137.7 Potassium 5.9 H D Chloride 96 L Carbon Dioxide 35 H Anion Gap 7 BUN 58 H Creatinine 4.43 H Est GFR ( Amer) 16 L Glucose 155 H Calcium 8.0 L Phosphorus 4.1 Magnesium 1.9 Albumin 3.6 10/15/18 10/15/18 10/16/18 09:55 09:55 08:00 Creatine Kinase 579 H CK-MB (CK-2) 4.41 Troponin I 0.067 NT-Pro-B Natriuret Pep 5950 H 5090 H 10/17/18 14:07 Creatine Kinase CK-MB (CK-2) Troponin I 0.055 NT-Pro-B Natriuret Pep Impressions: Chest X-Ray 10/16/18 06:00 IMPRESSION: STABLE APPEARANCE OF THE CHEST. SUPPORT DEVICES UNCHANGED. Assessment and Plan - Diagnosis (1) Acute respiratory failure with hypoxia and hypercapnia Is this a current diagnosis for this admission?: Yes Plan: 10/25/2018-the patient presented with increased shortness of breath likely due to congestive heart failure possibly related to his chronic kidney disease. He is a cardiac transplant. He in fact requires BiPAP at this time. His PCO2 was elevated by venous blood gas. I have ordered an arterial blood gas for the morning. We will continue his BiPAP for now. He is 18/6 with an FiO2 of 35% a nd a rate of 16. We will continue to try and wean the BiPAP. 10/16/2018-the patient remains on BiPAP. He is somewhat somnolent. He does smoke he has no documented diagnosis of COPD. His pulse ox this morning is 93%. His rate is between 18 and 26 and his FiO2 is 30%. He does have Xopenex available as needed. We will try to wean him from BiPAP. Because of his somnolence and current smoking I am going to obtain a blood gas to make sure his somnolence is not related to elevated PCO2. 10/17/2018-the patient is resting on nasal cannula this morning at 4 L. His breathing appears somewhat more comfortable than yesterday and he is off of BiPAP. His urine output has decreased. It is very possible that he has underlying COPD that is contributing and currently undertreated. I am going to add budesonide and intravenous steroids. 10/18/2018-the patient is still on nasal cannula. He states that he wore the BiPAP last night and he most likely has sleep apnea. His oxygen requirements vary. Today he was anywhere from 2.5 L/min up to 4 L/min. In addition to the volume overload we are also treating him for COPD as well. (2) Chronic renal failure, stage 4 (severe) Is this a current diagnosis for this admission?: Yes Plan: 10/15/2018-the patient was on hemodialysis earlier this year. It appears from reviewing last years labs that his creatinine jumped to greater than 7 and this is likely when he was started on hemodialysis. Since then his serum creatinines ranged from approximately 2.5 and 3.5. He still has a Vas-Cath in his right chest. He did see Dr. Morin for his kidney failure. I put a consult in for Dr. Potter. He is making excellent urine and so I do not believe dialysis will be necessary however he is quite ill and I would appreciate her input. He did respond well to a 100 mg intravenous dose of furosemide this morning. Since he has not gotten any since I have ordered an additional 100 mg this evening and will administer 80 mg every 8 hours on a daily basis and monitor his intake and output. The patient's states that for some time patient's fluid management was by dialysis. In the exam room he was having some leg cramping and since his serum potassium was normal this morning it is likely dropping and will monitor closely and supplement. I have continued all of his renal medications including calcium acetate, sodium bicarbonate, vitamin D3, folic acid and a Nephrocap daily. 10/16/2018-the patient still has his Vas-Cath in his left chest. His urine output yesterday was 3.5 L. Awaiting this morning's blood work to see if his creatinine has increased from yesterday due to the aggressive diuresis. He is a patient of Dr. Mikel pina. He has not required hemodialysis for approximately 6 to 8 weeks. Based on his laboratory results and ongoing urine output he may not require dialysis to remove fluid. If his creatinine spikes it might be helpful to dialyze the patient to remove fluid in this way I will be able to decrease the diuretic dose. We will otherwise continue his calcium acetate, sodium bicarbonate, Nephrocap, folate and vitamin D. 10/17/2018-urine output has decreased. The patient feels better and there is no more foaming at the mouth. He is feeling better and the edema is down significantly. His creatinine is up to 4.0 and BUN appears stable at 54. I am going to back off on his furosemide as COPD could be a contributing factor to his shortness of breath as well. 10/18/2018-appreciate nephrology's input. It seems we have over diuresed the patient. His creatinine did go up a little bit. His diuretics are on hold for today. In addition the Aldactone for congestive failure was discontinued as it created hyperkalemia. (3) Acute on chronic congestive heart failure Qualifiers: Heart failure type: unspecified Qualified Code(s): I50.9 - Heart failure, unspecified Is this a current diagnosis for this admission?: Yes Plan: 10/15/2018-the patient is status post cardiac transplant 8 years ago. I could not find the results of any echocardiogram. Most of the studies are likely with his transplant physician at [facility] in [place]. His medication regimen does not include any angiotensin receptor blockers or SUDHAKAR inhibitors. We will continue his furosemide at a significantly increased dose. The patient has been accepted to [facility] and we are waiting for a bed. In the interim he has received 2 doses of 100 mg IV furosemide today. I have instituted 80 mg of furosemide every 8 hours and in addition I have added nitroglycerin paste. Drawl is seen was added for his hypertension. Morphine will be available for air hunger. We will continue to monitor intake and output. This will be much easier with his Larson catheter in place. 10/16/2018-the patient is no longer foaming of the mouth. He has distant breath sounds likely due to body habitus but is not an extremis. Because of his elevated blood pressure and tachycardia yesterday I have added hydralazine, low- dose losartan and metoprolol. I will adjust his medications based on his vital signs, laboratory studies and net fluid balance. 10/17/2018-after researching heart transplant rejection the evaluation can be diff icult Dobutamine stress echo is recommended to avoid contrast in renal failure patients. Coronary angiography is also recommended. The patient reports not having any of this for some time now. He in fact had his heart transplant at [facility]. I am trying to obtain records. In the interim I am decreasing the furosemide due to his increased serum creatinine. I am increasing the regimen for COPD. 10/18/2018-as noted above the congestive heart failure component of this prese ntation appears to be improved and stable. An echocardiogram is pending to evaluate the transplanted heart ejection fraction. Continue current regimen with changes incorporated by nephrology. (4) Hypertension Qualifiers: Hypertension type: essential hypertension Qualified Code(s): I10 - Essential (primary) hypertension Is this a current diagnosis for this admission?: Yes Plan: 10/25/2018-the patient's states that he typically does not have high blood pressure. Rated after that she stated that when he was in the hospital last year he had significantly elevated pressures. They tried to put "an IV "in his arm to check his pressures. In addition to increasing his furosemide I have been added hydralazine. I will try low-dose spironolactone as well. We will need to monitor his potassium level closely due to interactions with the transplant medications. 10/16/2018-the patient's blood pressure is much better this morning. He was triple over triple in the emergency department yesterday. With the adjustments in medication his blood pressure is improved. He is still tachycardic and so metoprolol has been added. We will need to monitor his blood pressure as we decrease the diuretic dose. 10/17/2018-the blood pressure is still higher than desired. He was triple over triple admission and so this is acceptable for the time being. He has been borderline tachycardic and so I am going to increase his metoprolol. 10/18/2018-the patient's metoprolol was increased yesterday. It appears to be improving his heart rate and blood pressure. We will continue to monitor and adjust medications accordingly. (5) Heart transplant recipient Is this a current diagnosis for this admission?: Yes Plan: 10/16/2018-the patient will continue on his mycophenolate and tacrolimus. These are being dosed for his current renal function. He has been accepted at [facility] but there is no bed available. Dr. Anastasiya Flores is the accepting physician. I will reach out to the transfer center this morning. If his condition improves then he may be able to complete his care here, discharge and follow-up with the transplant center next week. By x-ray he has mild cardiomegaly. Await further studies at this time. Hopeful for successful transfer today. 10/17/2018-the patient reports that he in fact had his transplant at [facility]. I am trying to reach out and obtain records and then likely speak to the transplant physician superintendent [employer] stations. I am introduced IV steroids predominantly for COPD but if there is any type of rejection this should help treat it. Coronary artery vasculopathy and transplant patients is sometimes difficult to assess. I have ordered an echocardiogram and I am trying to obtain the last echo he had at [place] as well. 10/18/2018-unfortunately the [place] [facility] in [place] has not forwarded any of the patient's records. This makes it very difficult to compare this echocardiogram to previous ones. Is also hard to know if certain clinical issues of his hist ory and current status as the patient is a good historian comes to complex medical issues. He does appear to be stable. We will continue to attempt to get records. (6) Excessive anticoagulation Is this a current diagnosis for this admission?: Yes Plan: 10/15/2018-the patient is on warfarin. His normal regimen is 15 mg on Thursday and Thursday and then 10 mg on Thursday and Fridays. His INR was greater than 3.0. He does not have a mechanical valve. I am not sure of the indication for the warfarin. Am going to hold his warfarin therapy. I will check an INR daily. It is unclear why his INR is high but dietary indiscretion is always a consideration. 10/16/2018-the patient's INR was greater than 3.0 yesterday. We have held his warfarin. Today's INR will determine whether or not we initiate warfarin or hold it again today. 10/17/2018-the patient states that his INR is currently therapeutic. He was unable to tell me why he was on the Coumadin. He states it was from a sore on his leg. He is not in atrial fibrillation. Hopefully there will be information in the medical records from [place]. If not we will consider discontinuing the warfarin. Because he did give vitamin K I will administer a dose of warfarin to avoid subtherapeutic levels. 10/18/2017-1 of the critical issues that I am trying to get clarification on is why the patient is on anticoagulation. His rhythm is sinus. He is back on 10 mg of warfarin daily. Vitamin K has suppressed his INR to a subtherapeutic level. We will try and gradually increase the dose to that his INR becomes therapeutic but does not overshoot the therapeutic range. INR is ordered daily through October 21. (7) Hyperlipidemia Qualifiers: Hyperlipidemia type: unspecified Qualified Code(s): E78.5 - Hyperlipidemia, unspecified Is this a current diagnosis for this admission?: Yes Plan: 10/15/2018-we will continue statin therapy. We will substitute our formularies atorvastatin for the patient's pravastatin. 10/16/2018-continue statin therapy as above 10/17/2018-LDL is greater than 100. I will increase the atorvastatin to 80 mg to maximize benefit for the patient. 10/18/2018-as noted above atorvastatin was increased. Recheck lipids in 3 months. (8) Tobacco dependence due to cigarettes Is this a current diagnosis for this admission?: Yes Plan: 10/15/2018-incredibly, after a successful cardiac transplant, the patient still smokes 1/2 pack of cigarettes daily. His reports that she is trying to get him to quit. I did reinforce the same and in fact told him that he is severely compromising his recovery and overall health due to his continued smoking. 10/16/2018-the patient still smokes despite his cardiac transplant status. I will make a nicotine patch available. He was strongly encouraged to stop smoking as it will significantly impact his cardiopulmonary function. 10/17/2018-continue availability of nicotine patch. Hopefully this illness will cause the patient to rethink his smoking. 10/18/2018-nicotine patch and continue encouragement to stop smoking (9) Obstructive sleep apnea Is this a current diagnosis for this admission?: Yes Plan: 10/15/2018-the patient has a large neck. I did ask his if he has a diagnosis of obstructive sleep apnea. She did note that he has been referred for a sleep study. It has not been scheduled yet. We will continue him on BiPAP for his respiratory failure and this certainly will help with any obstructive apnea. 10/16/2018-as noted above the patient is currently being evaluated for obstructive sleep apnea. There is a high likelihood that he carries this diagnosis. Currently on BiPAP this is not an issue. Hopefully he will get assessed as soon as possible so that he can receive the appropriate treatment. 10/17/2018-I do believe the patient does have obstructive sleep apnea. He has been on the BiPAP at night every night. We are trialing nasal cannula during the day. We might be able to change him to CPAP at night but it is likely he will need BiPAP. 10/18/2018-continue BiPAP at night. We will encourage his compliance with a sleep study after discharge. (10) Hyperkalemia Is this a current diagnosis for this admission?: Yes Plan: 10/18/2018-with the aggressive diuresis and a trial of Aldactone the patient's potassium is elevated. Dr. Morin did stop the Aldactone and administered Kayexalate. Recheck laboratory studies tomorrow. (11) Chronic obstructive pulmonary disease with (acute) exacerbation Is this a current diagnosis for this admission?: Yes Plan: 10/18/2018-based on the patient's oxygen demand and easy fatigability with dyspnea it is likely that this episode was not purely related to congestive failure. I believe there is underlying COPD. I did bring up his nebulizer treatments and initiated steroid therapy. I believe the high dose of steroid yesterday contributed to his agitation last night. Dr. Morin started a 3 times a day dosing of 20 mg. We will continue to monitor. Consider pulmonology consult as well. If failure to improve is noted then consider CT scan of the chest and pulmonary function studies. I do not believe he needs a CT angiogram (nor should it be done with his renal failure) since he was supratherapeutic on his warfarin at the time of admission. - Time Time Spent with patient: 15-24 minutes Smoking Cessation Education: 3 to 10 minutes Medications reviewed and adjusted accordingly: Yes Anticipated discharge: Home
[2018-10-18] MEDS ORDERED: TRAZODONE HCL 50 MG TABLET PO PRN (22:48)
[2018-10-18] MEDS: WARFARIN SODIUM 5 MG TABLET PO SCH (23:44)
[2018-10-18] MEDS: ASPIRIN 81 MG TABLET, ENT COATED PO SCH (23:44)
[2018-10-19] MEDS: IPRATROPIUM/ALBUTEROL 0.5-2.5 MG/3 ML AMPUL NEB SCH ×4 (02:10→20:30)
[2018-10-19] MEDS: METHYLPREDNISOLONE INJ 40 MG/1 ML SDV IV SCH ×3 (05:29→22:25)
[2018-10-19] MEDS: NITROGLYCERIN 2% OINTMENT 1 GM PACKET TP SCH ×3 (05:30→17:48)
[2018-10-19] MEDS: HYDRALAZINE HCL 10 MG TABLET PO SCH ×4 (05:30→17:48)
[2018-10-19 06:33] LABS: INTERNATIONAL RATION (INR) 1.15; PROTHROMBIN TIME 14.7 SEC (11.4-15.4)
[2018-10-19 06:37] LABS: ABSOLUTE RETICS # 0.054 10^6/uL (0.028-0.122); HEMATOCRIT 34.1 % (37.9-51.0); HEMOGLOBIN 10.7 g/dL (13.5-17.0); MEAN CORPUSCULAR HEMOGLOBIN 28.7 pg (27.0-33.4); MEAN CORPUSCULAR HGB CONC 31.5 g/dL (32.0-36.0); MEAN CORPUSCULAR VOLUME 91 fl (80-97); PLATELET COUNT 232 10^3/uL (150-450); RED BLOOD COUNT 3.74 10^6/uL (4.35-5.55); RED CELL DISTRIBUTION WIDTH 14.7 % (11.5-14.0); RETICULOCYTE COUNT (AUTO) 1.44 % (0.66-2.85)
[2018-10-19 06:51] LABS: ALKALINE PHOSPHATASE 75 U/L (38-126); ANION GAP 8 (5-19); ASPARTATE AMINO TRANSFERASE 29 U/L (17-59); BILIRUBIN,DIRECT 0.1 mg/dL (0.0-0.4); BILIRUBIN,TOTAL 0.4 mg/dL (0.2-1.3); BLOOD UREA NITROGEN 70 mg/dL (7-20); CALCIUM 8.4 mg/dL (8.4-10.2); CARBON DIOXIDE 35 mmol/L (22-30); CHLORIDE 97 mmol/L (98-107); CREATINE KINASE 646 U/L (55-170); GLUCOSE 160 mg/dL (75-110); IRON(TIBC) 49.2 ug/dL (49-181); POTASSIUM 5.6 mmol/L (3.6-5.0); TOTAL PROTEIN 6.8 g/dL (6.3-8.2); VENOUS BLOOD BASE EXCESS 5.8 mmol/L; VENOUS BLOOD HCO3 35.5 mmol/L (20-32); VENOUS BLOOD PH 7.24 (7.30-7.42)
[2018-10-19 06:56] LABS: ARTERIAL BLOOD BASE EXCESS 2.8 mmol/L; ARTERIAL BLOOD H2CO3 2.23 mmol/L (1.05-1.35); ARTERIAL BLOOD HCO3 31.7 mmol/L (20-24); ARTERIAL BLOOD O2 SATURATION 22.5 % (94-98); ARTERIAL BLOOD PH 7.25 (7.35-7.45)
[2018-10-19 07:03] LABS: ARTERIAL BLOOD FIO2 4LNC
[2018-10-19 07:04] LABS: VENOUS BLOOD PCO2 84.8 mmHg (35-63)
[2018-10-19 07:04] LABS: ARTERIAL BLOOD PCO2 74.2 mmHg (35-45); ARTERIAL BLOOD PO2 19.2 mmHg (80-100)
[2018-10-19 07:45] LABS: ABSOLUTE LYMPHOCYTES# (MANUAL) 0.3 10^3/uL (0.5-4.7); BASOPHILS % (MANUAL) 0 % (0-2); EOSINOPHILS % (MANUAL) 0 % (0-6); LYMPHOCYTES % (MANUAL) 3 % (13-45); MONOCYTES % (MANUAL) 0 % (3-13); SEGMENTED NEUTROPHILS % (MAN) 97 % (42-78); TOTAL CELLS COUNTED 100
[2018-10-19 07:46] LABS: ANISOCYTOSIS SLIGHT; PLATELET COMMENT ADEQUATE; POLYCHROMASIA SLIGHT
[2018-10-19 07:59] LABS: FOLATE > 20.00 ng/mL (>2.76)
[2018-10-19] MEDS: BUDESONIDE NEB 0.25 MG/2 ML AMPUL NEB SCH ×2 (08:25→20:30)
[2018-10-19] MEDS: MAGNESIUM OXIDE 400 MG TABLET PO SCH ×3 (08:40→16:12)
[2018-10-19] MEDS: CALCIUM ACETATE 667 MG CAPSULE PO SCH ×3 (08:40→16:11)
[2018-10-19] MEDS: CALCITRIOL 0.25 MCG CAPSULE PO SCH (09:36)
[2018-10-19] MEDS: MYCOPHENOLATE MOFETIL 250 MG CAPSULE PO SCH ×2 (09:36→17:48)
[2018-10-19] MEDS: METOPROLOL SUCCINATE 50 MG TAB.SR.24H PO SCH (09:36)
[2018-10-19] MEDS: SODIUM POLYSTYRENE SULFONATE 15 GM/60 ML PO SCH ×2 (09:36→22:25)
[2018-10-19] MEDS: FAMOTIDINE 20 MG TABLET PO SCH (09:37)
[2018-10-19] MEDS: FOLIC ACID 1 MG TABLET PO SCH (09:37)
[2018-10-19] MEDS: FOLIC ACID/VITAMIN B COMP W-C CAPSULE PO SCH (16:11)
[2018-10-19] MEDS: TACROLIMUS ANHYDROUS 1 MG CAPSULE PO SCH ×2 (16:12→22:25)
--- NOTE | 2018-10-19 19:21 | PDOC PROGRESS REPORT ---
Subjective Progress Note for:: 10/19/18 Subjective:: Patient was seen on afternoon rounds. He is found resting in bed comfortably on supplemental oxygen via nasal cannula. Patient reports that he is feeling well; somewhat fatigued today, but otherwise has no complaints. He is getting ready to put BiPAP back on to take a nap. He denies fever, chills, chest pain, palpitations, orthopnea, cough, abdominal pain, nausea vomiting diarrhea. He has no questions or concerns at this time. is at bedside, she has no questions either. No concerns per nursing at this time. Reason For Visit: ACUTE KIDNEY FAILURE Physical Exam Vital Signs: Temp Pulse Resp BP Pulse Ox 97.7 F 87 17 161/92 H 96 10/19/18 16:04 10/19/18 16:04 10/19/18 16:04 10/19/18 16:04 10/19/18 16:04 Intake & Output 10/18/18 10/19/18 10/20/18 06:59 06:59 06:59 Intake Total 1745 960 600 Output Total 700 1250 1000 Balance 1045 -290 -400 Weight 108.4 kg 108.6 kg General appearance: PRESENT: no acute distress, cooperative, obese, well- developed, well-nourished Head exam: PRESENT: atraumatic, normocephalic Eye exam: PRESENT: conjunctiva pink, EOMI, PERRLA. ABSENT: scleral icterus Ear exam: PRESENT: normal external ear exam Mouth exam: PRESENT: moist, tongue midline Neck exam: ABSENT: carotid bruit, JVD, lymphadenopathy, thyromegaly Respiratory exam: PRESENT: clear to auscultation óscar, symmetrical, unlabored. ABSENT: rales, rhonchi, wheezes Cardiovascular exam: PRESENT: RRR, +S1, +S2. ABSENT: diastolic murmur, rubs, systolic murmur Pulses: PRESENT: normal dorsalis pedis pul Vascular exam: PRESENT: normal capillary refill GI/Abdominal exam: PRESENT: normal bowel sounds, soft. ABSENT: distended, guarding, mass, organolmegaly, rebound, tenderness Rectal exam: PRESENT: deferred Gentrourinary exam: PRESENT: indwelling catheter Extremities exam: PRESENT: full ROM. ABSENT: calf tenderness, clubbing, pedal edema, +1 edema Neurological exam: PRESENT: alert, awake, oriented to person, oriented to place, oriented to time, oriented to situation, CN II-XII grossly intact, other. ABSENT: motor sensory deficit Psychiatric exam: PRESENT: appropriate affect, normal mood. ABSENT: homicidal ideation, suicidal ideation Skin exam: PRESENT: dry, intact, warm. ABSENT: cyanosis, rash Results Laboratory Results: 10/19/18 06:14 10/19/18 06:14 10/19/18 10/19/18 10/19/18 06:14 06:14 06:14 WBC 9.0 RBC 3.74 L Hgb 10.7 L Hct 34.1 L MCV 91 MCH 28.7 MCHC 31.5 L RDW 14.7 H Plt Count 232 Seg Neutrophils % Not Reportable Retic Count (auto) 1.44 Carbonic Acid HCO3/H2CO3 Ratio ABG pH ABG pCO2 ABG pO2 ABG HCO3 ABG O2 Saturation ABG Base Excess VBG pH 7.24 L VBG pCO2 84.8 H* VBG HCO3 35.5 H VBG Base Excess 5.8 FiO2 Sodium 140.2 Potassium 5.6 H Chloride 97 L Carbon Dioxide 35 H Anion Gap 8 BUN 70 H Creatinine 3.86 H Est GFR ( Amer) 19 L Glucose 160 H Calcium 8.4 Iron 49.2 TIBC 224 L % Saturation 22 Ferritin 1280.00 H Total Bilirubin 0.4 AST 29 Alkaline Phosphatase 75 Total Protein 6.8 Albumin 4.0 Vitamin B12 874.0 Folate > 20.00 10/19/18 06:36 WBC RBC Hgb Hct MCV MCH MCHC RDW Plt Count Seg Neutrophils % Retic Count (auto) Carbonic Acid 2.23 H HCO3/H2CO3 Ratio 14:1 ABG pH 7.25 L ABG pCO2 74.2 H* ABG pO2 19.2 L* ABG HCO3 31.7 H ABG O2 Saturation 22.5 L ABG Base Excess 2.8 VBG pH VBG pCO2 VBG HCO3 VBG Base Excess FiO2 4LNC Sodium Potassium Chloride Carbon Dioxide Anion Gap BUN Creatinine Est GFR ( Amer) Glucose Calcium Iron TIBC % Saturation Ferritin Total Bilirubin AST Alkaline Phosphatase Total Protein Albumin Vitamin B12 Folate 10/15/18 10/15/18 10/16/18 09:55 09:55 08:00 Creatine Kinase 579 H CK-MB (CK-2) 4.41 Troponin I 0.067 NT-Pro-B Natriuret Pep 5950 H 5090 H 10/17/18 10/19/18 14:07 06:14 Creatine Kinase 646 H CK-MB (CK-2) Troponin I 0.055 NT-Pro-B Natriuret Pep Impressions: Chest X-Ray 10/16/18 06:00 IMPRESSION: STABLE APPEARANCE OF THE CHEST. SUPPORT DEVICES UNCHANGED. Assessment and Plan - Diagnosis (1) Acute respiratory failure with hypoxia and hypercapnia Is this a current diagnosis for this admission?: Yes Plan: ABG this morning is incorrect; appears that this was a venous gas. Patient is not home O2 dependent; he denies ever having been recommended to have home oxygen. He also states that he does not have a CPAP/BiPAP, but would be interested in outpatient sleep study. Overall, respiratory failure is improved. He has been weaned from primarily BiPAP dependent to Nasal cannula at 3 L/min. Currently speaking full sentences, lying supine, with clear lung sounds throughout. We will continue to manage her CHF exacerbation as outlined below. Continue supplemental oxygen as needed to maintain saturations. Continue scheduled and as needed nebulizer treatments. Have begun weaning Solu-Medrol. Incentive spirometer and flutter valve to bedside. (2) Chronic renal failure, stage 4 (severe) Is this a current diagnosis for this admission?: Yes Plan: Discussed with nephrology today; patient appears to be slightly over diuresed. Holding diuretics at this time. Kayexalate for hyperkalemia. Indications for implementing dialysis at this time. Continue PhosLo with meals. Continue daily Calcitrol. Nephrology is consulted; appreciate their assistance. (3) Heart transplant recipient Is this a current diagnosis for this admission?: Yes Plan: Echocardiogram has been completed; report has not yet been analyzed. Awaiting records from [facility]. Patient is a poor historian and unable to provide any additional insights. (4) Hypertension Qualifiers: Hypertension type: essential hypertension Qualified Code(s): I10 - Essential (primary) hypertension Is this a current diagnosis for this admission?: Yes Plan: Patient remains hypertensive, although overall improved. 161/92 today. Continue hydralazine 10 mg every 6 hours and Toprol XL 100 mg daily Currently holding home dose furosemide. Nephrology is consulted; appreciate their assistance. Cardiac diet. (5) Excessive anticoagulation Is this a current diagnosis for this admission?: Yes Plan: Patient was supratherapeutic on admission. Coumadin placed initially on hold; have resumed 10 mg nightly. Daily PT/INR. (6) Hyperlipidemia Qualifiers: Hyperlipidemia type: unspecified Qualified Code(s): E78.5 - Hyperlipidemia, unspecified Is this a current diagnosis for this admission?: Yes Plan: Cardiac diet. Continue atorvastatin 80 mg daily. (7) Obstructive sleep apnea Is this a current diagnosis for this admission?: Yes Plan: BiPAP nightly. Have recommended the patient have an outpatient Overnight sleep study following discharge. (8) Tobacco dependence due to cigarettes Is this a current diagnosis for this admission?: Yes Plan: Smoking cessation encouraged, nicotine or placement therapies provided. (9) Chronic obstructive pulmonary disease with (acute) exacerbation Is this a current diagnosis for this admission?: Yes Plan: Patient currently on 3 L/min; he is not home O2 dependent. He is noted to be lying supine, without increased work of breathing, speaking full sentences, with clear lung sounds. Continue supplemental oxygen as needed to maintain saturations. Continue scheduled and as needed nebulizer treatments. Have begun weaning Solu-Medrol. (10) Hyperkalemia Is this a current diagnosis for this admission?: Yes Plan: Secondary to #2; Kayexalate as mentioned above. Nephrology is consulted. Daily chemistries. - Time Time Spent with patient: 25-34 minutes Medications reviewed and adjusted accordingly: Yes Anticipated discharge: Home with Homehealth Within: within 48 hours - pending Nephrology's approval
--- NOTE | 2018-10-19 19:22 | Progress Note Acknowledgement ---
Progress Note Acknowledgement Progess Note Acknowledgement: I, the undersigned member of the medical staff with appropriate privileges and with supervisory authority over Vanessa Hill, a [facility] practice allied health professional, acknowledge that I have reviewed the progress notes entered on this patient, and in my professional judgment believe that the assessment made and/or any care evidenced was appropriate
--- NOTE | 2018-10-19 19:45 | PDOC PROGRESS REPORT ---
Subjective Progress Note for:: 10/19/18 Reason For Visit: Patient is in bed sleeping with his BiPAP on. He is easily arousable. He denies any history of chest pain or shortness of breath unless she exerts. No complaints of any fever or chills. Labs and medications were reviewed. Physical Exam Vital Signs: Temp Pulse Resp BP Pulse Ox 97.7 F 87 17 161/92 H 96 10/19/18 16:04 10/19/18 16:04 10/19/18 16:04 10/19/18 16:04 10/19/18 16:04 Intake & Output 10/18/18 10/19/18 10/20/18 06:59 06:59 06:59 Intake Total 1745 960 600 Output Total 700 1250 1000 Balance 1045 -290 -400 Weight 108.4 kg 108.6 kg General appearance: PRESENT: no acute distress Respiratory exam: PRESENT: clear to auscultation óscar, decreased breath sounds. ABSENT: crackles Cardiovascular exam: PRESENT: +S1, +S2. ABSENT: rubs GI/Abdominal exam: PRESENT: normal bowel sounds, soft. ABSENT: organomegaly, tenderness Extremities exam: ABSENT: pedal edema Neurological exam: PRESENT: alert, awake, oriented to person, oriented to place Psychiatric exam: PRESENT: appropriate affect Results Laboratory Results: 10/19/18 06:14 10/19/18 06:14 10/19/18 10/19/18 10/19/18 06:14 06:14 06:14 WBC 9.0 RBC 3.74 L Hgb 10.7 L Hct 34.1 L MCV 91 MCH 28.7 MCHC 31.5 L RDW 14.7 H Plt Count 232 Seg Neutrophils % Not Reportable Retic Count (auto) 1.44 Carbonic Acid HCO3/H2CO3 Ratio ABG pH ABG pCO2 ABG pO2 ABG HCO3 ABG O2 Saturation ABG Base Excess VBG pH 7.24 L VBG pCO2 84.8 H* VBG HCO3 35.5 H VBG Base Excess 5.8 FiO2 Sodium 140.2 Potassium 5.6 H Chloride 97 L Carbon Dioxide 35 H Anion Gap 8 BUN 70 H Creatinine 3.86 H Est GFR ( Amer) 19 L Glucose 160 H Calcium 8.4 Iron 49.2 TIBC 224 L % Saturation 22 Ferritin 1280.00 H Total Bilirubin 0.4 AST 29 Alkaline Phosphatase 75 Total Protein 6.8 Albumin 4.0 Vitamin B12 874.0 Folate > 20.00 10/19/18 06:36 WBC RBC Hgb Hct MCV MCH MCHC RDW Plt Count Seg Neutrophils % Retic Count (auto) Carbonic Acid 2.23 H HCO3/H2CO3 Ratio 14:1 ABG pH 7.25 L ABG pCO2 74.2 H* ABG pO2 19.2 L* ABG HCO3 31.7 H ABG O2 Saturation 22.5 L ABG Base Excess 2.8 VBG pH VBG pCO2 VBG HCO3 VBG Base Excess FiO2 4LNC Sodium Potassium Chloride Carbon Dioxide Anion Gap BUN Creatinine Est GFR ( Amer) Glucose Calcium Iron TIBC % Saturation Ferritin Total Bilirubin AST Alkaline Phosphatase Total Protein Albumin Vitamin B12 Folate 10/15/18 10/15/18 10/16/18 09:55 09:55 08:00 Creatine Kinase 579 H CK-MB (CK-2) 4.41 Troponin I 0.067 NT-Pro-B Natriuret Pep 5950 H 5090 H 10/17/18 10/19/18 14:07 06:14 Creatine Kinase 646 H CK-MB (CK-2) Troponin I 0.055 NT-Pro-B Natriuret Pep Impressions: Chest X-Ray 10/16/18 06:00 IMPRESSION: STABLE APPEARANCE OF THE CHEST. SUPPORT DEVICES UNCHANGED. Assessment & Plan - Diagnosis (1) Acute on chronic congestive heart failure Qualifiers: Heart failure type: unspecified Qualified Code(s): I50.9 - Heart failure, unspecified Is this a current diagnosis for this admission?: Yes Plan: Numbers are stable. Clinically he looks like currently he is over diuresed and looks like he is rather dehydrated. Encourage p.o. fluid intake. No indications for renal replacements at the moment. (2) Chronic renal failure, stage 4 (severe) Is this a current diagnosis for this admission?: Yes Plan: His renal numbers are improving though his potassium still a bit high. I would continue on current management. We will treat his potassium was put with Ka yexalate and monitor that carefully. I do not see any indications for renal replacements. His baseline creatinine is approximately 3 and is now down to 3.8. He needs better hydration which have explained. (3) Acute respiratory failure with hypoxia and hypercapnia Is this a current diagnosis for this admission?: Yes Plan: Currently improving. I believe he has also got undiagnosed and untreated sleep apnea which needs to be looked at as an outpatient. Continue on current management as per hospitalist. (4) Anemia in chronic kidney disease (CKD) Is this a current diagnosis for this admission?: Yes Plan: Iron studies came back adequate. His hemoglobin is 10.7. No indications for erythropoietin currently.Monitor. (5) Heart transplant recipient Is this a current diagnosis for this admission?: Yes Plan: Continue on his anti-rejection medications including tacrolimus and CellCept. (6) Hyperkalemia Is this a current diagnosis for this admission?: Yes Plan: We will treated more vigorously with Kayexalate. Discussed with nurse. (7) Hypertension Qualifiers: Hypertension type: essential hypertension Qualified Code(s): I10 - Essential (primary) hypertension Is this a current diagnosis for this admission?: Yes Plan: Uncontrolled. Monitor. (8) Obstructive sleep apnea Is this a current diagnosis for this admission?: Yes Plan: As per hospitalist. Definitely needs outpatient diagnostics testing and treatments. (9) Renal osteodystrophy Is this a current diagnosis for this admission?: Yes Plan: Began on calcitriol. Monitor. (10) Tobacco dependence due to cigarettes Is this a current diagnosis for this admission?: Yes Plan: Advised on discontinuation of cigarettes for obvious reasons.
--- NOTE | 2018-10-19 22:06 | XCELERA REPORT ---
[address] [address] Transthoracic Echocardiogram Report Name: ALYSIA AGARWAL Age: 62 yrs Gender: Male : 1955 Patient Status: Inpatient Patient Location: [address] [place], [place] [address] Study Date: 10/18/2018 02:55 PM Height: 67 in Weight: 236 lb BSA: 2.2 m2 Procedure: A two-dimensional transthoracic echocardiogram with color flow and Doppler was performed. Study Quality: Fair. Reason For Study: transplant, assess EF, [facility] get [facility] History: Heart transplant, assess EF,. Ordering Physician: DEVANG MELTON Performed By: Aydee Rodriguez Interpretation Summary The left ventricle is normal in size. There is normal left ventricular wall thickness. The left ventricular ejection fraction is within normal limits. LV EF is 60% Doppler measurements suggest normal left ventricular diastolic function The left ventricular wall motion is normal. There is no thrombus. Probably no ASD ,VSD , or PFO seen. The right ventricle is not well visualized secondary to technical limitations The right atrium is normal. The left atrial size is normal. There is no evidence of mitral valve prolapse. There is no vegetation seen on the mitral valve. There is no mitral valve stenosis. There is a trace amount of mitral regurgitation There is no aortic valve stenosis No aortic regurgitation is present. There is no tricuspid stenosis. There is a trace amount of tricuspid regurgitation Unable to calculate RVSP due to insufficient TR jet. There is no pulmonic valvular stenosis. There is a trace amount of pulmonic regurgitation The aortic root is mildly dilated There is no pericardial effusion. MMode/2D Measurements & Calculations RVDd: 3.7 cm LVIDd: 4.2 cm FS: 32.0 % Ao root diam: 3.8 cm IVSd: 0.91 cm LVIDs: 2.9 cm EDV(Teich): Ao root area: LVPWd: 1.1 cm 79.2 ml 11.6 cm2 ESV(Teich): 31.2 ml EF(Teich): 60.6 % EDV(MOD-sp4): SV(MOD-sp4): 175.8 ml 119.0 ml ESV(MOD-sp4): 56.8 ml EF(MOD-sp4): 67.7 % Doppler Measurements & Calculations MV E max ashley: MV dec slope: Ao V2 max: LV V1 max P.1 cm/sec 105.5 cm/sec 2.0 mmHg MV A max ashley: 818.9 cm/sec2 Ao max PG: LV V1 max: 47.6 cm/sec MV dec time: 0.12 sec 4.4 mmHg 70.4 cm/sec MV E/A: 2.1 PA V2 max: 95.1 cm/sec PA max P.6 mmHg Left Ventricle The left ventricle is normal in size. There is normal left ventricular wall thickness. The left ventricular ejection fraction is within normal limits. LV EF is 60%. Doppler measurements suggest normal left ventricular diastolic function. The left ventricular wall motion is normal. There is no thrombus. Probably no ASD ,VSD , or PFO seen. Right Ventricle The right ventricle is not well visualized secondary to technical limitations. The right ventricle is grossly normal size. Atria The right atrium is normal. The left atrial size is normal. Mitral Valve There is no evidence of mitral valve prolapse. There is no vegetation seen on the mitral valve. There is no mitral valve stenosis. There is a trace amount of mitral regurgitation. Aortic Valve There is no aortic valve stenosis. No aortic regurgitation is present. Tricuspid Valve There is no tricuspid stenosis. There is a trace amount of tricuspid regurgitation. Unable to calculate RVSP due to insufficient TR jet. Pulmonic Valve There is no pulmonic valvular stenosis. There is a trace amount of pulmonic regurgitation. Great Vessels The aortic root is mildly dilated. Effusions There is no pericardial effusion. : DEVANG MELTON Lakshmi
[2018-10-19] MEDS: ASPIRIN 81 MG TABLET, ENT COATED PO SCH (22:26)
[2018-10-19] MEDS: WARFARIN SODIUM 5 MG TABLET PO SCH (22:26)
[2018-10-20] MEDS: HYDRALAZINE HCL 10 MG TABLET PO SCH ×4 (00:10→17:27)
[2018-10-20] MEDS: NITROGLYCERIN 2% OINTMENT 1 GM PACKET TP SCH ×4 (00:10→17:28)
[2018-10-20] MEDS: IPRATROPIUM/ALBUTEROL 0.5-2.5 MG/3 ML AMPUL NEB SCH ×4 (02:25→19:54)
[2018-10-20] MEDS: METHYLPREDNISOLONE INJ 40 MG/1 ML SDV IV SCH ×2 (06:03→22:02)
[2018-10-20 06:41] LABS: ARTERIAL BLOOD BASE EXCESS 9.9 mmol/L; ARTERIAL BLOOD H2CO3 2.23 mmol/L (1.05-1.35); ARTERIAL BLOOD HCO3 38.2 mmol/L (20-24); ARTERIAL BLOOD O2 SATURATION 90.8 % (94-98); ARTERIAL BLOOD PH 7.33 (7.35-7.45); ARTERIAL BLOOD PO2 66.1 mmHg (80-100); ARTERIAL BLOOD TOTAL CO2 40.5 mmol/L (23-27)
[2018-10-20 06:42] LABS: ARTERIAL BLOOD FIO2 32%
[2018-10-20] MEDS: BUDESONIDE NEB 0.25 MG/2 ML AMPUL NEB SCH ×2 (08:10→19:54)
[2018-10-20 08:37] LABS: HEMATOCRIT 33.6 % (37.9-51.0); HEMOGLOBIN 10.5 g/dL (13.5-17.0); MEAN CORPUSCULAR HEMOGLOBIN 28.5 pg (27.0-33.4); MEAN CORPUSCULAR HGB CONC 31.4 g/dL (32.0-36.0); MEAN CORPUSCULAR VOLUME 91 fl (80-97); PLATELET COUNT 250 10^3/uL (150-450); RED CELL DISTRIBUTION WIDTH 14.3 % (11.5-14.0); WHITE BLOOD COUNT 6.6 10^3/uL (4.0-10.5)
[2018-10-20 08:42] LABS: INTERNATIONAL RATION (INR) 1.09; PROTHROMBIN TIME 14.1 SEC (11.4-15.4)
[2018-10-20 09:00] LABS: ANION GAP 9 (5-19); BLOOD UREA NITROGEN 78 mg/dL (7-20); CALCIUM 8.8 mg/dL (8.4-10.2); CARBON DIOXIDE 38 mmol/L (22-30); CHLORIDE 93 mmol/L (98-107); GLUCOSE 156 mg/dL (75-110); POTASSIUM 4.9 mmol/L (3.6-5.0)
[2018-10-20] MEDS: CALCIUM ACETATE 667 MG CAPSULE PO SCH ×3 (09:41→17:27)
[2018-10-20] MEDS: CALCITRIOL 0.25 MCG CAPSULE PO SCH (09:41)
[2018-10-20] MEDS: MAGNESIUM OXIDE 400 MG TABLET PO SCH ×3 (09:41→17:27)
[2018-10-20] MEDS: MYCOPHENOLATE MOFETIL 250 MG CAPSULE PO SCH ×2 (09:42→17:26)
[2018-10-20] MEDS: METOPROLOL SUCCINATE 50 MG TAB.SR.24H PO SCH (09:42)
[2018-10-20] MEDS: FOLIC ACID 1 MG TABLET PO SCH (09:42)
[2018-10-20] MEDS: FAMOTIDINE 20 MG TABLET PO SCH (09:42)
[2018-10-20] MEDS ORDERED: PROMETHAZINE HCL INJ 25 MG/1 ML VIAL IV PRN (10:29)
--- NOTE | 2018-10-20 11:49 | PDOC PROGRESS REPORT ---
Subjective Progress Note for:: 10/20/18 Reason For Visit: Patient sleeping but without BiPAP. He is snoring very loudly and is difficult to arouse but he does so after a while. His is at the bedside who states that this is what happens on a daily basis in the daytime. She states she has tried to get a sleep study done at the [facility] but has not yet been successful. Patient denies any history of chest pains or shortness of breath. Labs and medications were reviewed that shows improving renal functions. Physical Exam Vital Signs: Temp Pulse Resp BP Pulse Ox 98.1 F 90 18 131/81 H 95 10/20/18 03:21 10/20/18 08:11 10/20/18 08:22 10/20/18 03:21 10/20/18 08:11 Intake & Output 10/19/18 10/20/18 10/21/18 06:59 06:59 06:59 Intake Total 960 600 Output Total 1250 2050 Balance -290 -1450 Weight 108.6 kg 107.6 kg General appearance: PRESENT: no acute distress Respiratory exam: PRESENT: clear to auscultation óscar. ABSENT: crackles Cardiovascular exam: PRESENT: +S1, +S2. ABSENT: rubs GI/Abdominal exam: PRESENT: normal bowel sounds, soft. ABSENT: organomegaly, tenderness Extremities exam: PRESENT: pedal edema Neurological exam: PRESENT: alert, awake, oriented to person, oriented to place Psychiatric exam: PRESENT: appropriate affect Results Laboratory Results: 10/20/18 07:49 10/20/18 07:49 10/20/18 10/20/18 10/20/18 06:15 07:49 07:49 WBC 6.6 RBC 3.70 L Hgb 10.5 L Hct 33.6 L MCV 91 MCH 28.5 MCHC 31.4 L RDW 14.3 H Plt Count 250 Carbonic Acid 2.23 H HCO3/H2CO3 Ratio 17:1 ABG pH 7.33 L ABG pCO2 74.0 H* ABG pO2 66.1 L ABG HCO3 38.2 H ABG O2 Saturation 90.8 L ABG Base Excess 9.9 FiO2 32% Sodium 140.2 Potassium 4.9 Chloride 93 L Carbon Dioxide 38 H Anion Gap 9 BUN 78 H Creatinine 3.43 H Est GFR ( Amer) 22 L Glucose 156 H Calcium 8.8 10/15/18 09:55 Blood Blood Culture - Final NO GROWTH IN 5 DAYS 10/15/18 12:10 Blood Blood Culture - Final Staph Coagulase Negative 10/15/18 10/15/18 10/16/18 09:55 09:55 08:00 Creatine Kinase 579 H CK-MB (CK-2) 4.41 Troponin I 0.067 NT-Pro-B Natriuret Pep 5950 H 5090 H 10/17/18 10/19/18 14:07 06:14 Creatine Kinase 646 H CK-MB (CK-2) Troponin I 0.055 NT-Pro-B Natriuret Pep Impressions: Chest X-Ray 10/16/18 06:00 IMPRESSION: STABLE APPEARANCE OF THE CHEST. SUPPORT DEVICES UNCHANGED. Assessment & Plan - Diagnosis (1) Acute on chronic congestive heart failure Qualifiers: Heart failure type: unspecified Qualified Code(s): I50.9 - Heart failure, unspecified Is this a current diagnosis for this admission?: Yes Plan: Numbers are stable. Clinically he looks like currently he is over diuresed and looks like he is rather dehydrated. Encourage p.o. fluid intake. No indications for renal replacements at the moment. (2) Chronic renal failure, stage 4 (severe) Is this a current diagnosis for this admission?: Yes Plan: His renal numbers are improving and his potassium has been corrected. I do not see any indications for renal replacements. His baseline creatinine is approximately 3 and is now down to 3.4. He needs better hydration which have explained. (3) Acute respiratory failure with hypoxia and hypercapnia Is this a current diagnosis for this admission?: Yes Plan: Currently improving. I believe he has also got undiagnosed and untreated sleep apnea which needs to be looked at as an outpatient. Continue on current management as per hospitalist. (4) Anemia in chronic kidney disease (CKD) Is this a current diagnosis for this admission?: Yes Plan: Iron studies came back adequate. His hemoglobin is stable. No indications for erythropoietin currently.Monitor. (5) Heart transplant recipient Is this a current diagnosis for this admission?: Yes Plan: Continue on his anti-rejection medications including tacrolimus and CellCept. (6) Hyperkalemia Is this a current diagnosis for this admission?: Yes Plan: Resolved. Monitor. Advised proper dietary modifications. (7) Hypertension Qualifiers: Hypertension type: essential hypertension Qualified Code(s): I10 - Essential (primary) hypertension Is this a current diagnosis for this admission?: Yes Plan: controlled. Monitor. (8) Obstructive sleep apnea Is this a current diagnosis for this admission?: Yes Plan: As per hospitalist. Definitely needs outpatient diagnostics testing and treatments. (9) Renal osteodystrophy Is this a current diagnosis for this admission?: Yes Plan: Began on calcitriol. Monitor. (10) Tobacco dependence due to cigarettes Is this a current diagnosis for this admission?: Yes Plan: Advised on discontinuation of cigarettes for obvious reasons.
[2018-10-20] MEDS: TACROLIMUS ANHYDROUS 1 MG CAPSULE PO SCH (13:09)
[2018-10-20 16:36] LABS: A/G RATIO 1.1 (0.7-1.7); ALBUMIN 2 3.5 g/dL (2.9-4.4); GAMMA GLOBULIN 0.9 g/dL (0.4-1.8); GLOBULIN TOTAL 3.1 g/dL (2.2-3.9); MONOCLONAL SPIKE Not Observed g/dL (Not Observ); PROTEIN TOTAL SERUM 6.6 g/dL (6.0-8.5)
--- NOTE | 2018-10-20 17:18 | PDOC PROGRESS REPORT ---
Subjective Progress Note for:: 10/20/18 Subjective:: Patient was seen on morning rounds with his present. He is found resting in bed comfortably on supplemental oxygen via nasal cannula. Unfortunately, the patient is feeling nauseated this morning and had a large volume of emesis while I was at the bedside. He denies abdominal discomfort. He has had multiple bowel movements this admission secondary to Kayexalate use for management of hyperkalemia. Otherwise he states that he is feeling well, though remains short of breath and fatigue. He is not home O2 dependent and does not have a CPAP or BiPAP machine at home. He denies fever, chills, chest pain, palpitations, orthopnea, cough, abdominal pain. He has no questions or concerns at this time. is at bedside, she has no questions either. No concerns per nursing at this time. Reason For Visit: ACUTE KIDNEY FAILURE Physical Exam Vital Signs: Temp Pulse Resp BP Pulse Ox 98.1 F 91 16 131/81 H 96 10/20/18 03:21 10/20/18 14:00 10/20/18 13:56 10/20/18 03:21 10/20/18 13:56 Intake & Output 10/19/18 10/20/18 10/21/18 06:59 06:59 06:59 Intake Total 960 600 480 Output Total 1250 2050 1000 Balance -290 -1450 -520 Weight 108.6 kg 107.6 kg General appearance: PRESENT: no acute distress, cooperative, morbidly obese, well-developed, well-nourished Head exam: PRESENT: atraumatic, normocephalic Eye exam: PRESENT: conjunctiva pink, EOMI, PERRLA. ABSENT: scleral icterus Ear exam: PRESENT: normal external ear exam Mouth exam: PRESENT: moist, tongue midline Neck exam: ABSENT: carotid bruit, JVD, lymphadenopathy, thyromegaly Respiratory exam: PRESENT: clear to auscultation óscar, symmetrical, unlabored, other - Supplemental oxygen via nasal cannula. ABSENT: rales, rhonchi, wheezes Cardiovascular exam: PRESENT: RRR, +S1, +S2. ABSENT: diastolic murmur, rubs, systolic murmur Pulses: PRESENT: normal dorsalis pedis pul Vascular exam: PRESENT: normal capillary refill GI/Abdominal exam: PRESENT: diminished bowel sounds, distended, soft, other - rotund. ABSENT: guarding, mass, organolmegaly, rebound, tenderness Rectal exam: PRESENT: deferred Extremities exam: PRESENT: full ROM. ABSENT: calf tenderness, clubbing, pedal edema Neurological exam: PRESENT: alert, awake, oriented to person, oriented to place, oriented to time, oriented to situation, CN II-XII grossly intact, other - Fatigue. ABSENT: motor sensory deficit Psychiatric exam: PRESENT: appropriate affect, normal mood. ABSENT: homicidal ideation, suicidal ideation Skin exam: PRESENT: dry, intact, warm. ABSENT: cyanosis, rash Results Laboratory Results: 10/20/18 07:49 10/20/18 07:49 10/20/18 10/20/18 10/20/18 06:15 07:49 07:49 WBC 6.6 RBC 3.70 L Hgb 10.5 L Hct 33.6 L MCV 91 MCH 28.5 MCHC 31.4 L RDW 14.3 H Plt Count 250 Carbonic Acid 2.23 H HCO3/H2CO3 Ratio 17:1 ABG pH 7.33 L ABG pCO2 74.0 H* ABG pO2 66.1 L ABG HCO3 38.2 H ABG O2 Saturation 90.8 L ABG Base Excess 9.9 FiO2 32% Sodium 140.2 Potassium 4.9 Chloride 93 L Carbon Dioxide 38 H Anion Gap 9 BUN 78 H Creatinine 3.43 H Est GFR ( Amer) 22 L Glucose 156 H Calcium 8.8 10/15/18 12:10 Blood Blood Culture - Final Staph Coagulase Negative 10/15/18 09:55 Blood Blood Culture - Final NO GROWTH IN 5 DAYS 10/15/18 10/15/18 10/16/18 09:55 09:55 08:00 Creatine Kinase 579 H CK-MB (CK-2) 4.41 Troponin I 0.067 NT-Pro-B Natriuret Pep 5950 H 5090 H 10/17/18 10/19/18 14:07 06:14 Creatine Kinase 646 H CK-MB (CK-2) Troponin I 0.055 NT-Pro-B Natriuret Pep Impressions: Chest X-Ray 10/16/18 06:00 IMPRESSION: STABLE APPEARANCE OF THE CHEST. SUPPORT DEVICES UNCHANGED. Assessment and Plan - Diagnosis (1) Acute respiratory failure with hypoxia and hypercapnia Is this a current diagnosis for this admission?: Yes Plan: ABG this morning shows persistent respiratory acidosis with hypercapnia. Patient is not home O2 dependent; he denies ever having been recommended to have home oxygen. He also states that he does not have a CPAP/BiPAP, but would be interested in outpatient sleep study. Overall, respiratory failure is improved. He has been weaned from primarily BiPAP dependent to Nasal cannula at 3-4 L/min. Currently speaking full sentences, lying supine, with clear lung sounds throughout. We will continue to manage her CHF exacerbation as outlined below. Continue supplemental oxygen as needed to maintain saturations. Continue scheduled and as needed nebulizer treatments. Continue weaning Solu-Medrol. Incentive spirometer and flutter valve to bedside. Pulmonology has been consulted; appreciate Dr. Ashby's assistance. We will repeat ABG tomorrow morning while still on BiPAP. (2) Chronic renal failure, stage 4 (severe) Is this a current diagnosis for this admission?: Yes Plan: Discussed with nephrology yesterday; patient appears to be slightly over diuresed. Holding diuretics at this time. Kayexalate for hyperkalemia; currently corrected (K4.9) No indications for implementing dialysis at this time. Continue PhosLo with meals. Continue daily Calcitrol. Nephrology is consulted; appreciate their assistance. (3) Heart transplant recipient Is this a current diagnosis for this admission?: Yes Plan: Echocardiogram has been completed; report has not yet been analyzed. Awaiting records from [facility] in [place]. Patient is a poor historian and unable to provide any additional insights. (4) Hypertension Qualifiers: Hypertension type: essential hypertension Qualified Code(s): I10 - Essential (primary) hypertension Is this a current diagnosis for this admission?: Yes Plan: Patient remains hypertensive, although overall improved. Continue hydralazine 10 mg every 6 hours and Toprol XL 100 mg daily Currently holding home dose furosemide. Nephrology is consulted; appreciate their assistance. Cardiac diet. (5) Excessive anticoagulation Is this a current diagnosis for this admission?: Yes Plan: Patient was supratherapeutic on admission Coumadin placed initially on hold; continues to be subtherapeutic. Dosing per pharmacy; to receive warfarin 15 mg tonight. Daily PT/INR. (6) Hyperlipidemia Qualifiers: Hyperlipidemia type: unspecified Qualified Code(s): E78.5 - Hyperlipidemia, unspecified Is this a current diagnosis for this admission?: Yes Plan: Cardiac diet. Continue atorvastatin 80 mg daily. (7) Obstructive sleep apnea Is this a current diagnosis for this admission?: Yes Plan: BiPAP nightly. Have recommended the patient have an outpatient Overnight sleep study following discharge. Pulmonology consulted. (8) Tobacco dependence due to cigarettes Is this a current diagnosis for this admission?: Yes Plan: Smoking cessation encouraged, nicotine or placement therapies provided. (9) Chronic obstructive pulmonary disease with (acute) exacerbation Is this a current diagnosis for this admission?: Yes Plan: Patient currently on 3 L/min; he is not home O2 dependent. Continue supplemental oxygen as needed to maintain saturations. Continue scheduled and as needed nebulizer treatments. Continue weaning Solu-Medrol. Pulmonology now consulted; appreciate Dr. Ashby's assistance. (10) Hyperkalemia Is this a current diagnosis for this admission?: Yes Plan: Secondary to #2 Management as above. Nephrology is consulted. Daily chemistries. (11) Nausea & vomiting Is this a current diagnosis for this admission?: Yes Plan: Patient with nausea, vomiting, abdominal distention and hypoactive bowel sounds. He has been receiving Kayexalate for management of hyperkalemia with daily bowel movements. We will obtain an acute abdominal series. Antiemetics as needed - Time Time Spent with patient: 25-34 minutes Medications reviewed and adjusted accordingly: Yes
[2018-10-20] MEDS: FOLIC ACID/VITAMIN B COMP W-C CAPSULE PO SCH (17:26)
--- NOTE | 2018-10-20 17:57 | RADIOLOGY REPORT (SQ) ---
EXAM DESCRIPTION: ACUTE ABDOMEN SERIES COMPLETED DATE/TIME: 10/20/2018 5:14 pm REASON FOR STUDY: Hypoxia, dyspnea, N/V COMPARISON: 10/16/2018 NUMBER OF VIEWS: Three views. TECHNIQUE: PA chest, supine abdomen and upright/decubitus abdomen radiographic images acquired. LIMITATIONS: None. FINDINGS: CHEST: Similar small left pleural effusion -scarring. Overall stable compared with 10/17/19 19. FREE AIR: None. No abnormal gas collections. BOWEL GAS PATTERN: There are dilated small bowel loops, some with air-fluid levels suggesting possibl e ileus or developing obstruction. CALCIFICATIONS: No suspicious calcifications. HARDWARE: None in the abdomen. SOFT TISSUES: No gross mass or suggestion of organomegaly. BONES: No acute fracture. No worrisome bone lesions. OTHER: No other significant finding. IMPRESSION: There are dilated small bowel loops, some with air-fluid levels suggesting possible ileu s or developing obstruction. COMMENT: The findings were sent to the Radiology Results Communication Center at 17:50 on 10/20/2018 to be communicated to a licensed caregiver. TECHNICAL DOCUMENTATION: JOB ID: [id number] 2010 [employer]- All Rights Reserved Reading location - IP/workstation name: [email or web address]
[2018-10-20] MEDS ORDERED: DEXTROSE 40% GEL 15 GM TUBE PO PRN ×2 (18:10)
[2018-10-20] MEDS ORDERED: DEXTROSE 50%-WATER 25 GM/50 ML DISP.SYRIN IV PRN ×2 (18:10)
[2018-10-20] MEDS ORDERED: GLUCAGON,HUMAN RECOMB 1 MG INJ SUBCUT PRN (18:10)
[2018-10-20] MEDS ORDERED: PHARMACY COMMUNICATION ORDER MC NR (18:15)
[2018-10-20] MEDS ORDERED: ONDANSETRON 4 MG TAB.RAPDIS NG PRN (18:30)
[2018-10-20] MEDS ORDERED: MAG HYDROX/AL HYDROX/SIMETH SUSP 30 ML UDCUP NG PRN (18:30)
[2018-10-20] MEDS ORDERED: ACETAMINOPHEN 325 MG TABLET NG PRN (18:30)
[2018-10-20] MEDS ORDERED: TRAZODONE HCL 50 MG TABLET NG PRN (18:30)
[2018-10-20] MEDS ORDERED: DEXTROSE 40% GEL 15 GM TUBE NG PRN ×2 (18:30)
--- NOTE | 2018-10-20 19:24 | RADIOLOGY REPORT (SQ) ---
EXAM DESCRIPTION: KUB/ABDOMEN (SINGLE VIEW) COMPLETED DATE/TIME: 10/20/2018 7:08 pm REASON FOR STUDY: Check Placement of NG Tube COMPARISON: 10/20/2018 NUMBER OF VIEWS: One view. TECHNIQUE: Supine radiographic image of the abdomen acquired. LIMITATIONS: None. FINDINGS: There is an NG tube in the stomach. The tip of the tube touches the greater curvature. IMPRESSION: NG tube placement as described. TECHNICAL DOCUMENTATION: JOB ID: [id number] [employer]- All Rights Reserved Reading location - IP/workstation name: [email or web address]
[2018-10-20 21:07] LABS: CREATINE KINASE MB 1.89 ng/mL (<4.55); TROPONIN I 0.043 ng/mL
[2018-10-20] MEDS ORDERED: WARFARIN SODIUM 7.5 MG TABLET NG SCH (22:00)
[2018-10-20] MEDS ORDERED: WARFARIN SODIUM 7.5 MG TABLET PO SCH (22:00)
[2018-10-20] MEDS ORDERED: TACROLIMUS ANHYDROUS 1 MG CAPSULE NG SCH (22:00)
[2018-10-20] MEDS: HEPARIN SOD (PORCINE) 5,000 UNIT/ML 1 ML VIAL SUBCUT SCH (22:03)
[2018-10-20] MEDS: MORPHINE SULFATE 10 MG/ML INJ IV PRN (22:12)
[2018-10-21] MEDS ORDERED: HYDRALAZINE HCL 10 MG TABLET NG SCH
[2018-10-21] MEDS: NITROGLYCERIN 2% OINTMENT 1 GM PACKET TP SCH ×4 (00:35→17:53)
[2018-10-21] MEDS: MORPHINE SULFATE 10 MG/ML INJ IV PRN ×2 (02:02→12:10)
[2018-10-21] MEDS: IPRATROPIUM/ALBUTEROL 0.5-2.5 MG/3 ML AMPUL NEB SCH ×4 (02:10→19:47)
[2018-10-21 03:00] LABS: CREATINE KINASE MB 1.59 ng/mL (<4.55); TROPONIN I 0.047 ng/mL
[2018-10-21] MEDS: HEPARIN SOD (PORCINE) 5,000 UNIT/ML 1 ML VIAL SUBCUT SCH ×2 (05:36→17:56)
[2018-10-21 06:53] LABS: ARTERIAL BLOOD BASE EXCESS 21.5 mmol/L; ARTERIAL BLOOD H2CO3 3.12 mmol/L (1.05-1.35); ARTERIAL BLOOD HCO3 51.9 mmol/L (20-24); ARTERIAL BLOOD O2 SATURATION 91.7 % (94-98); ARTERIAL BLOOD PH 7.32 (7.35-7.45); ARTERIAL BLOOD PO2 72.2 mmHg (80-100); ARTERIAL BLOOD TOTAL CO2 55.1 mmol/L (23-27)
[2018-10-21 06:55] LABS: ARTERIAL BLOOD FIO2 5L
[2018-10-21 06:56] LABS: ARTERIAL BLOOD PCO2 103.7 mmHg (35-45)
[2018-10-21] MEDS ORDERED: MAGNESIUM OXIDE 400 MG TABLET NG SCH (08:00)
[2018-10-21] MEDS ORDERED: CALCIUM ACETATE 667 MG CAPSULE NG SCH (08:00)
[2018-10-21] MEDS: BUDESONIDE NEB 0.25 MG/2 ML AMPUL NEB SCH ×2 (08:25→19:47)
--- NOTE | 2018-10-21 09:55 | RADIOLOGY REPORT (SQ) ---
EXAM DESCRIPTION: ACUTE ABDOMEN SERIES COMPLETED DATE/TIME: 10/21/2018 9:32 am REASON FOR STUDY: dyspnea, ileus COMPARISON: 10/20/2018 NUMBER OF VIEWS: Three views. TECHNIQUE: Frontal chest, supine abdomen and upright/decubitus abdomen radiographic images acquired. LIMITATIONS: None. FINDINGS: CHEST: Cardiomegaly status post median sternotomy with small left pleural effusion. No fo donte airspace opacity. FREE AIR: None. No abnormal gas collections. BOWEL GAS PATTERN: No significant interval change in mild, diffuse bowel distention, largest loops me asuring 4.7 cm. Gas is present to the distal colon and rectum. Esophagogastric tube remains in posi tion with tip and side port below the diaphragm. CALCIFICATIONS: No suspicious calcifications. HARDWARE: None in the abdomen. SOFT TISSUES: No gross mass or suggestion of organomegaly. BONES: No acute fracture. No worrisome bone lesions. OTHER: Large bore left neck multi lumen vascular catheter. IMPRESSION: 1. No significant interval change in mild, diffuse bowel distention, largest loops measu ring 4.7 cm. Scattered gas is present to the distal colon and rectum. Esophagogastric tube remains in position with tip and side port below the diaphragm. Findings remain generally consistent with il eus or partial bowel obstruction. Consider CT to further evaluate. 2. Cardiomegaly status post median sternotomy with small left pleural effusion. No focal airspace op acity. TECHNICAL DOCUMENTATION: JOB ID: [id number] [employer]- All Rights Reserved Reading location - IP/workstation name: [email or web address]
[2018-10-21] MEDS ORDERED: FOLIC ACID 1 MG TABLET NG SCH (10:00)
[2018-10-21] MEDS ORDERED: MYCOPHENOLATE MOFETIL 250 MG CAPSULE NG SCH (10:00)
[2018-10-21] MEDS ORDERED: FAMOTIDINE 20 MG TABLET NG SCH (10:00)
[2018-10-21 10:04] LABS: INTERNATIONAL RATION (INR) 1.19; PROTHROMBIN TIME 15.2 SEC (11.4-15.4)
[2018-10-21 10:22] LABS: ALBUMIN 3.5 g/dL (3.5-5.0); ALKALINE PHOSPHATASE 60 U/L (38-126); ASPARTATE AMINO TRANSFERASE 20 U/L (17-59); BILIRUBIN,DIRECT 0.1 mg/dL (0.0-0.4); BILIRUBIN,TOTAL 0.6 mg/dL (0.2-1.3); BLOOD UREA NITROGEN 89 mg/dL (7-20); CALCIUM 8.8 mg/dL (8.4-10.2); CHLORIDE 90 mmol/L (98-107); CREATINE KINASE 91 U/L (55-170); GLUCOSE 128 mg/dL (75-110); POTASSIUM 4.9 mmol/L (3.6-5.0)
[2018-10-21 10:30] LABS: CREATINE KINASE MB 1.71 ng/mL (<4.55); TROPONIN I 0.042 ng/mL
[2018-10-21 10:41] LABS: ANION GAP 8 (5-19); CARBON DIOXIDE 44 mmol/L (22-30)
[2018-10-21 11:00] LABS: ARTERIAL BLOOD BASE EXCESS 21.8 mmol/L; ARTERIAL BLOOD HCO3 51.3 mmol/L (20-24); ARTERIAL BLOOD O2 SATURATION 53.2 % (94-98); ARTERIAL BLOOD PH 7.38 (7.35-7.45); ARTERIAL BLOOD TOTAL CO2 54.1 mmol/L (23-27)
[2018-10-21 11:05] LABS: ARTERIAL BLOOD FIO2 30%; ARTERIAL BLOOD PCO2 89.8 mmHg (35-45)
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
[2018-10-21] MEDS: METHYLPREDNISOLONE INJ 40 MG/1 ML SDV IV SCH (12:10)
--- NOTE | 2018-10-21 15:11 | PDOC PROGRESS REPORT ---
Subjective Progress Note for:: 10/21/18 Subjective:: Patient was transferred here in the ICU this morning because of worsening respiratory failure with a PCO2 of 103.7. Currently improved with the BiPAP. He is actually awake and answering some questions. is at bedside. He also developed ileus and is currently with NG tube. He had significant vomiting yesterday. Currently he feels fine and does not have much complaints. His urine output has been very good between 2 to 2.5 L the last 48 hours. His diuretics is on hold due to concern for overdiuresis. Reason For Visit: ACUTE KIDNEY FAILURE Physical Exam Vital Signs: Temp Pulse Resp BP Pulse Ox 98.3 F 92 14 150/97 H 97 10/21/18 12:00 10/21/18 14:00 10/21/18 14:00 10/21/18 14:00 10/21/18 14:00 Intake & Output 10/20/18 10/21/18 10/22/18 06:59 06:59 06:59 Intake Total 600 840 Output Total 2050 3525 500 Balance -1450 -7455 -500 Weight 107.6 kg 107.7 kg 102.1 kg Exam: General appearance: PRESENT: Currently on BiPAP and comfortable, cooperative, well-developed, well-nourished Head exam: PRESENT: atraumatic, normocephalic Eye exam: PRESENT: conjunctiva slightly pale, PERRLA. ABSENT: scleral icterus Neck exam: ABSENT: JVD Respiratory exam: PRESENT: Diminished breath sounds. ABSENT: crackles, rales, rhonchi, unlabored, wheezes Cardiovascular exam: PRESENT: Regular rate rhythm -+S1, +S2. ABSENT: diastolic murmur, systolic murmur GI/Abdominal exam: PRESENT: normal bowel sounds, soft. ABSENT: guarding, mass, tenderness Extremities exam: ABSENT: No edema Neurological exam: PRESENT: alert, awake, oriented not assessed. Skin exam: PRESENT: dry, warm, Cardiovascular exam: PRESENT: +S1, +S2. ABSENT: rubs GI/Abdominal exam: PRESENT: normal bowel sounds, soft. ABSENT: organomegaly, tenderness Results Laboratory Results: 10/20/18 07:49 10/21/18 08:51 10/19/18 10/21/18 10/21/18 06:14 06:13 08:51 Carbonic Acid 3.12 H HCO3/H2CO3 Ratio 16:1 ABG pH 7.32 L ABG pCO2 103.7 H* ABG pO2 72.2 L ABG HCO3 51.9 H ABG O2 Saturation 91.7 L ABG Base Excess 21.5 FiO2 5L Sodium 141.9 Potassium 4.9 Chloride 90 L Carbon Dioxide 44 H* Anion Gap 8 BUN 89 H Creatinine 3.90 H Est GFR ( Amer) 19 L Glucose 128 H Calcium 8.8 Total Bilirubin 0.6 AST 20 Alkaline Phosphatase 60 Total Protein 6.6 6.0 L Albumin 3.5 3.5 10/21/18 10:40 Carbonic Acid 2.70 H HCO3/H2CO3 Ratio 19:1 ABG pH 7.38 ABG pCO2 89.8 H* ABG pO2 31.0 L* ABG HCO3 51.3 H ABG O2 Saturation 53.2 L ABG Base Excess 21.8 FiO2 30% Sodium Potassium Chloride Carbon Dioxide Anion Gap BUN Creatinine Est GFR ( Amer) Glucose Calcium Total Bilirubin AST Alkaline Phosphatase Total Protein Albumin 10/15/18 12:10 Blood Blood Culture - Final Staph Coagulase Negative 10/15/18 10/15/18 10/16/18 09:55 09:55 08:00 Creatine Kinase 579 H CK-MB (CK-2) 4.41 Troponin I 0.067 NT-Pro-B Natriuret Pep 5950 H 5090 H 10/17/18 10/19/18 10/20/18 14:07 06:14 20:32 Creatine Kinase 646 H 147 CK-MB (CK-2) Troponin I 0.055 NT-Pro-B Natriuret Pep 10/20/18 10/21/18 10/21/18 20:32 02:20 02:20 Creatine Kinase 113 CK-MB (CK-2) 1.89 1.59 Troponin I 0.043 0.047 NT-Pro-B Natriuret Pep 10/21/18 10/21/18 08:51 08:51 Creatine Kinase 91 CK-MB (CK-2) 1.71 Troponin I 0.042 NT-Pro-B Natriuret Pep Impressions: Chest X-Ray 10/16/18 06:00 IMPRESSION: STABLE APPEARANCE OF THE CHEST. SUPPORT DEVICES UNCHANGED. KUB X-Ray 10/20/18 18:10 IMPRESSION: NG tube placement as described. Acute Abdomen Series 10/21/18 00:00 IMPRESSION: 1. No significant interval change in mild, diffuse bowel distention, largest loops measuring 4.7 cm. Scattered gas is present to the distal colon and rectum. Esophagogastric tube remains in position with tip and side port below the diaphragm. Findings remain generally consistent with ileus or partial bowel obstruction. Consider CT to further evaluate. 2. Cardiomegaly status post median sternotomy with small left pleural effusion. No focal airspace opacity. Assessment & Plan - Diagnosis (1) Acute hypercapnic respiratory failure Is this a current diagnosis for this admission?: Yes Plan: Improving on BiPAP. (2) Acute on chronic congestive heart failure Qualifiers: Heart failure type: unspecified Qualified Code(s): I50.9 - Heart failure, unspecified Is this a current diagnosis for this admission?: Yes Plan: Improved with diuretics on hold. (3) Chronic renal failure, stage 4 (severe) Is this a current diagnosis for this admission?: Yes Plan: Kidney function has been stable. Currently nonoliguric. (4) Ileus Is this a current diagnosis for this admission?: Yes Plan: Currently with NG tube. (5) Hyperkalemia Is this a current diagnosis for this admission?: Yes Plan: Currently controlled. (6) Renal osteodystrophy Is this a current diagnosis for this admission?: Yes Plan: Continue calcitriol and calcium acetate. (7) Anemia in chronic kidney disease (CKD) Is this a current diagnosis for this admission?: Yes Plan: Adequate iron stores. Currently does not need Procrit. (8) Heart transplant recipient Is this a current diagnosis for this admission?: Yes Plan: Continue antirejection medications once able to take oral meds. (9) Hypertension Qualifiers: Hypertension type: essential hypertension Qualified Code(s): I10 - [place] l (primary) hypertension Is this a current diagnosis for this admission?: Yes - Time Time with patient: 15-25 minutes
--- NOTE | 2018-10-21 15:52 | PDOC PROGRESS REPORT ---
Subjective Progress Note for:: 10/21/18 Subjective:: Patient was seen on house steward/stewardess rounds with his present. He is found resting in bed on BiPAP; unfortunately, he did not wear BiPAP overnight and this morning's ABG reflects a CO2 of 104. He is noted to be drowsy, but oriented and answers all questions appropriately. He and his confirm that he is a full code and would wish to be intubated if his respiratory status further declines. He continues to have an NG tube in place with copious amounts of gastric fluid in the canisters. He has a distended/taut abdomen with hyperactive bowel sounds, but has not passed gas or had a bowel movement in ~36 hours. He denies fever, chills, chest pain, palpitations, orthopnea, cough, abdominal pain. No further episodes of emesis He has no questions or concerns at this time. is at bedside, she has no questions either. No concerns per nursing at this time. Reason For Visit: ACUTE KIDNEY FAILURE Physical Exam Vital Signs: Temp Pulse Resp BP Pulse Ox 98.3 F 92 21 H 150/97 H 96 10/21/18 12:00 10/21/18 14:00 10/21/18 15:26 10/21/18 14:00 10/21/18 15:26 Intake & Output 10/20/18 10/21/18 10/22/18 06:59 06:59 06:59 Intake Total 600 840 Output Total 2050 3525 500 Balance -5826 -3248 -500 Weight 107.6 kg 107.7 kg 102.1 kg General appearance: PRESENT: no acute distress, cooperative, obese, well- developed, well-nourished Head exam: PRESENT: atraumatic, normocephalic Eye exam: PRESENT: conjunctiva pink, EOMI, PERRLA. ABSENT: scleral icterus Ear exam: PRESENT: normal external ear exam Mouth exam: PRESENT: moist, tongue midline Neck exam: ABSENT: carotid bruit, JVD, lymphadenopathy, thyromegaly Respiratory exam: PRESENT: clear to auscultation óscar, decreased breath sounds - Throughout, symmetrical, unlabored, other - BiPAP. ABSENT: rales, rhonchi, wheezes Cardiovascular exam: PRESENT: RRR, +S1, +S2. ABSENT: diastolic murmur, rubs, systolic murmur Pulses: PRESENT: normal dorsalis pedis pul Vascular exam: PRESENT: normal capillary refill GI/Abdominal exam: PRESENT: distended, firm, hyperactive bowel sounds. ABSENT: guarding, mass, organolmegaly, rebound, tenderness Rectal exam: PRESENT: deferred Gentrourinary exam: PRESENT: indwelling catheter Extremities exam: PRESENT: full ROM. ABSENT: calf tenderness, clubbing, pedal edema Neurological exam: PRESENT: alert, awake, oriented to person, oriented to place, oriented to time, oriented to situation, CN II-XII grossly intact, other - Fatigue. ABSENT: motor sensory deficit Psychiatric exam: PRESENT: appropriate affect, normal mood. ABSENT: homicidal ideation, suicidal ideation Skin exam: PRESENT: dry, intact, warm. ABSENT: cyanosis, rash Results Laboratory Results: 10/20/18 07:49 10/21/18 08:51 10/19/18 10/21/18 10/21/18 06:14 06:13 08:51 Carbonic Acid 3.12 H HCO3/H2CO3 Ratio 16:1 ABG pH 7.32 L ABG pCO2 103.7 H* ABG pO2 72.2 L ABG HCO3 51.9 H ABG O2 Saturation 91.7 L ABG Base Excess 21.5 FiO2 5L Sodium 141.9 Potassium 4.9 Chloride 90 L Carbon Dioxide 44 H* Anion Gap 8 BUN 89 H Creatinine 3.90 H Est GFR ( Amer) 19 L Glucose 128 H Calcium 8.8 Total Bilirubin 0.6 AST 20 Alkaline Phosphatase 60 Total Protein 6.6 6.0 L Albumin 3.5 3.5 10/21/18 10:40 Carbonic Acid 2.70 H HCO3/H2CO3 Ratio 19:1 ABG pH 7.38 ABG pCO2 89.8 H* ABG pO2 31.0 L* ABG HCO3 51.3 H ABG O2 Saturation 53.2 L ABG Base Excess 21.8 FiO2 30% Sodium Potassium Chloride Carbon Dioxide Anion Gap BUN Creatinine Est GFR ( Amer) Glucose Calcium Total Bilirubin AST Alkaline Phosphatase Total Protein Albumin 10/15/18 12:10 Blood Blood Culture - Final Staph Coagulase Negative 10/15/18 10/15/18 10/16/18 09:55 09:55 08:00 Creatine Kinase 579 H CK-MB (CK-2) 4.41 Troponin I 0.067 NT-Pro-B Natriuret Pep 5950 H 5090 H 10/17/18 10/19/18 10/20/18 14:07 06:14 20:32 Creatine Kinase 646 H 147 CK-MB (CK-2) Troponin I 0.055 NT-Pro-B Natriuret Pep 10/20/18 10/21/18 10/21/18 20:32 02:20 02:20 Creatine Kinase 113 CK-MB (CK-2) 1.89 1.59 Troponin I 0.043 0.047 NT-Pro-B Natriuret Pep 10/21/18 10/21/18 08:51 08:51 Creatine Kinase 91 CK-MB (CK-2) 1.71 Troponin I 0.042 NT-Pro-B Natriuret Pep Impressions: Chest X-Ray 10/16/18 06:00 IMPRESSION: STABLE APPEARANCE OF THE CHEST. SUPPORT DEVICES UNCHANGED. KUB X-Ray 10/20/18 18:10 IMPRESSION: NG tube placement as described. Acute Abdomen Series 10/21/18 00:00 IMPRESSION: 1. No significant interval change in mild, diffuse bowel distention, largest loops measuring 4.7 cm. Scattered gas is present to the distal colon and rectum. Esophagogastric tube remains in position with tip and side port below the diaphragm. Findings remain generally consistent with ileus or partial bowel obstruction. Consider CT to further evaluate. 2. Cardiomegaly status post median sternotomy with small left pleural effusion. No focal airspace opacity. Assessment and Plan - Diagnosis (1) Acute respiratory failure with hypoxia and hypercapnia Is this a current diagnosis for this admission?: Yes Plan: ABG this morning is worsened; unfortunately, patient did not utilize BiPAP overnight despite explicit instructions to both himself and nursing staff. Patient is not home O2 dependent; he denies ever having been recommended to have home oxygen. He also states that he does not have a CPAP/BiPAP, but would be interested in outpatient sleep study. Overall, respiratory failure appears to be gradually worsening with persistently elevated CO2. However, he currently speaking full sentences, lying supine, with clear lung sounds, though diminished, throughout. Patient confirms that he is a full code and would wish to be intubated if his respiratory status further declines. Spoke with medical staff assistant; patient will be upgraded to the ICU as he now has an ileus with NG tube, worsening hypercapnia, lethargy, remains full code, etc. We will continue to manage her CHF exacerbation as outlined below. Continue supplemental oxygen as needed to maintain saturations. Continuous BiPAP. Continue scheduled and as needed nebulizer treatments. Continue Solu-Medrol. Pulmonology has been consulted; appreciate Dr. Ashby's assistance. Patient is upgraded to ICU and transitioned into the care of Dr. Schroeder. (2) Heart transplant recipient Is this a current diagnosis for this admission?: Yes Plan: Echocardiogram has been completed; report has not yet been analyzed. Awaiting records from [facility]. Patient is a poor historian and unable to provide any additional insights. Discussed with ICU nursing; I have asked them to assist with verifying the patient's antirejection drugs. Will defer orders to the medical staff assistant. Did speak with [facility], the patient remains on the waiting list for transfer to their facility. They are informed that of the patient's upgrade to ICU related to worsening respiratory status and development of ileus. (3) Chronic renal failure, stage 4 (severe) Is this a current diagnosis for this admission?: Yes Plan: Creatinine of 3.90; appears baseline is 2.9. Currently holding diuretics. Patient appears to have been over diuresed. Kayexalate for hyperkalemia; currently corrected (K4.9) No indications for implementing dialysis at this time. Continue PhosLo with meals. Continue daily Calcitrol. Nephrology is consulted; appreciate their assistance. (4) Hypertension Qualifiers: Hypertension type: essential hypertension Qualified Code(s): I10 - Essential (primary) hypertension Is this a current diagnosis for this admission?: Yes Plan: Patient remains hypertensive, although overall improved. Continue hydralazine 10 mg every 6 hours and Toprol XL 100 mg daily Currently holding home dose furosemide. Nephrology is consulted; appreciate their assistance. Cardiac diet. (5) Excessive anticoagulation Is this a current diagnosis for this admission?: Yes Plan: Patient was supratherapeutic on admission Coumadin placed initially on hold; now continues to be subtherapeutic. Dosing per pharmacy Daily PT/INR. (6) Hyperlipidemia Qualifiers: Hyperlipidemia type: unspecified Qualified Code(s): E78.5 - Hyperlipidemia, unspecified Is this a current diagnosis for this admission?: Yes Plan: Cardiac diet. Continue atorvastatin 80 mg daily. (7) Obstructive sleep apnea Is this a current diagnosis for this admission?: Yes Plan: BiPAP nightly. Have recommended the patient have an outpatient Overnight sleep study following discharge. Pulmonology consulted. (8) Tobacco dependence due to cigarettes Is this a current diagnosis for this admission?: Yes Plan: Smoking cessation encouraged, nicotine or placement therapies provided. (9) Chronic obstructive pulmonary disease with (acute) exacerbation Is this a current diagnosis for this admission?: Yes Plan: Worsened hypercapnia today secondary to BiPAP noncompliance. Patient has been upgraded to ICU. Continue supplemental oxygen as needed to maintain saturations. Continuous BiPAP. Continue scheduled and as needed nebulizer treatments. Continue Solu-Medrol. Pulmonology was consulted; appreciate Dr. Ashby's assistance. (10) Hyperkalemia Is this a current diagnosis for this admission?: Yes Plan: Resolved; secondary to #2 Management as above. Nephrology is consulted. Daily chemistries. (11) Nausea & vomiting Is this a current diagnosis for this admission?: Yes Plan: Patient with nausea, vomiting, abdominal distention and hypoactive bowel sounds. He has been receiving Kayexalate for management of hyperkalemia with daily bowel movements. Acute abdominal series reveals ileus versus small bowel obstruction. Follow-up unchanged. Patient continued to have episodes of vomiting yesterday. NG tube has been placed; currently to low wall suction. No further episodes of emesis. Antiemetics as needed - Time Time Spent with patient: 35 or more minutes Medications reviewed and adjusted accordingly: Yes Anticipated discharge: [facility] - Wait list for [facility] Cardiac ICU bed Within: when bed available
[2018-10-21] MEDS ORDERED: FOLIC ACID/VITAMIN B COMP W-C CAPSULE NG SCH (16:00)
--- NOTE | 2018-10-21 17:04 | PDOC DISCHARGE SUMMARY ---
General - Admit/Disc Date/PCP Admission Date/Primary Care Provider: 10/15/18 12:[facility] Discharge Date: 10/21/18 - Discharge Diagnosis (1) Acute on chronic congestive heart failure Is this a current diagnosis for this admission?: Yes Summary: The patient had orthtopic cardiac transplant abnout 7 years ago. The patient was though to have acute heart failure at the time of his admission. He was diuresed under the circumstances. His ECHO shows normal LV size and function hoeweve. (2) Acute respiratory failure with hypoxia and hypercapnia Is this a current diagnosis for this admission?: Yes Summary: The patient was brouight to iCU principally because of worsening ABgs with increased PaCO2 Since that time he has been on BIPAP with improvement in his ABG. Lasrt CXR a few days ago did not show gross pulmonary edema. (3) Anemia in chronic kidney disease (CKD) Is this a current diagnosis for this admission?: Yes Summary: The patient was admitted with a creatinine of about 3 Hios creatinine is currently close to 4 and diuretics have been on hold. The patient had a fair amount of pepripheral edema initally that has resolved. Hois chest sounds pretty clear. (4) Chronic obstructive pulmonary disease with (acute) exacerbation Is this a current diagnosis for this admission?: Yes Summary: I bbeleieve the patient has significant COPD. It is difficult to ascertain how much of his respiratory acidosis ois due to COPD and hpow muich is due to OHS. (5) Chronic renal failure, stage 4 (severe) Is this a current diagnosis for this admission?: Yes Summary: The patient had been admitted with a creatinine of 3 and is now up to 4 after diuresius. His diuretics are presently on hold. Has had a urine output of 2500 ccc thius far today. (6) Heart transplant recipient Is this a current diagnosis for this admission?: Yes - Additional Information Resuscitation Status: Full Code Discharge Diet: Cardiac Discharge Activity: Activity As Tolerated, Balance Activity w/Rest, Weigh Daily Home Medications: Aspirin [Ecotrin 81 mg EC Tablet] 81 mg PO DAILY 10/15/18 Calcium Acetate [Phoslo 667 Mg Capsule] 1,334 mg PO TID 10/15/18 Cholecalciferol (Vitamin D3) [Vitamin D3 1000 Unit Tablet] 1,000 unit PO DAILY 10/15/18 Folic Acid [Folvite 1 mg Tablet] 1 mg PO DAILY 10/15/18 Folic Acid/Vitamin B Comp W-C [Nephrocaps Softgel] 1 mg PO DAILY 10/15/18 Furosemide [Lasix 40 mg Tablet] 40 mg PO QAM 10/15/18 Furosemide [Lasix] 20 mg PO QPM 10/15/18 Mycophenolate Mofetil 250 mg PO BID 10/15/18 Pravastatin Sodium 40 mg PO QHS 10/15/18 Sodium Bicarbonate [Sodium Bicarbonate 650 mg Tablet] 1,300 mg PO DAILY 10/15/18 Tacrolimus [Prograf] 3 mg PO BID 10/15/18 Warfarin Sodium [Coumadin] 10 mg PO MOFR@1000 10/15/18 Warfarin Sodium [Coumadin] 15 mg PO SUTUWETHSA@1000 10/15/18 History of Present Illness History of Present Illness: ALYSIA AGARWAL is a 62 year old malewho presents to the ICU becuse of worsening ABGs. The opatient has had a fairly complicated course since admission. he was admitted originally several days ago with presumed CHF. he subsequently developed worse renal fn. In the last 24 hours he has developed bowel issues wioth an apparent ileus. He is on BIPAP and has a NGT ton drainage presently.When the NGT was inserted last night there was immediate collection of about 1500cc of fluid. The patient has been tentaively accepted to [facility] but his presently awiating a bed there. Hospital Course Hospital Course: as above. Physical Exam Vital Signs: Temp Pulse Resp BP Pulse Ox 98.3 F 92 21 H 150/97 H 96 10/21/18 12:00 10/21/18 14:00 10/21/18 15:26 10/21/18 14:00 10/21/18 15:26 Intake & Output 10/20/18 10/21/18 10/22/18 06:59 06:59 06:59 Intake Total 600 840 Output Total 8200 6842 500 Balance -2099 -2879 -536 Weight 107.6 kg 107.7 kg 102.1 kg General appearance: PRESENT: no acute distress, well-developed, well-nourished Head exam: PRESENT: atraumatic, normocephalic Eye exam: PRESENT: conjunctiva pink, EOMI, PERRLA. ABSENT: scleral icterus Ear exam: PRESENT: normal external ear exam Mouth exam: PRESENT: moist, tongue midline Neck exam: PRESENT: full ROM. ABSENT: carotid bruit, JVD, lymphadenopathy, thyromegaly Cardiovascular exam: PRESENT: RRR. ABSENT: diastolic murmur, rubs, systolic murmur Pulses: PRESENT: normal dorsalis pedis pul, +2 pedal pulses bilateral Vascular exam: PRESENT: normal capillary refill GI/Abdominal exam: PRESENT: normal bowel sounds, soft. ABSENT: distended, guarding, mass, organolmegaly, rebound, tenderness Rectal exam: PRESENT: deferred Neurological exam: PRESENT: alert, awake, oriented to person, oriented to place, oriented to time, oriented to situation, CN II-XII grossly intact. ABSENT: motor sensory deficit Psychiatric exam: PRESENT: appropriate affect, normal mood. ABSENT: homicidal ideation, suicidal ideation Skin exam: PRESENT: dry, intact, warm. ABSENT: cyanosis, rash Results Laboratory Results: 10/20/18 07:49 10/21/18 08:51 10/19/18 10/21/18 10/21/18 06:14 06:13 08:51 Carbonic Acid 3.12 H HCO3/H2CO3 Ratio 16:1 ABG pH 7.32 L ABG pCO2 103.7 H* ABG pO2 72.2 L ABG HCO3 51.9 H ABG O2 Saturation 91.7 L ABG Base Excess 21.5 FiO2 5L Sodium 141.9 Potassium 4.9 Chloride 90 L Carbon Dioxide 44 H* Anion Gap 8 BUN 89 H Creatinine 3.90 H Est GFR ( Amer) 19 L Glucose 128 H Calcium 8.8 Total Bilirubin 0.6 AST 20 Alkaline Phosphatase 60 Total Protein 6.6 6.0 L Albumin 3.5 3.5 10/21/18 10:40 Carbonic Acid 2.70 H HCO3/H2CO3 Ratio 19:1 ABG pH 7.38 ABG pCO2 89.8 H* ABG pO2 31.0 L* ABG HCO3 51.3 H ABG O2 Saturation 53.2 L ABG Base Excess 21.8 FiO2 30% Sodium Potassium Chloride Carbon Dioxide Anion Gap BUN Creatinine Est GFR ( Amer) Glucose Calcium Total Bilirubin AST Alkaline Phosphatase Total Protein Albumin 10/15/18 12:10 Blood Blood Culture - Final Staph Coagulase Negative 09/06/19 09/06/19 09/07/19 09:55 09:55 08:00 Creatine Kinase 579 H CK-MB (CK-2) 4.41 Troponin I 0.067 NT-Pro-B Natriuret Pep 5950 H 5090 H 10/17/18 10/19/18 10/20/18 14:07 06:14 20:32 Creatine Kinase 646 H 147 CK-MB (CK-2) Troponin I 0.055 NT-Pro-B Natriuret Pep 10/20/18 10/21/18 10/21/18 20:32 02:20 02:20 Creatine Kinase 113 CK-MB (CK-2) 1.89 1.59 Troponin I 0.043 0.047 NT-Pro-B Natriuret Pep 10/21/18 10/21/18 08:51 08:51 Creatine Kinase 91 CK-MB (CK-2) 1.71 Troponin I 0.042 NT-Pro-B Natriuret Pep Impressions: Chest X-Ray 10/16/18 06:00 IMPRESSION: STABLE APPEARANCE OF THE CHEST. SUPPORT DEVICES UNCHANGED. KUB X-Ray 10/20/18 18:10 IMPRESSION: NG tube placement as described. Acute Abdomen Series 10/21/18 00:00 IMPRESSION: 1. No significant interval change in mild, diffuse bowel distention, largest loops measuring 4.7 cm. Scattered gas is present to the distal colon and rectum. Esophagogastric tube remains in position with tip and side port below the diaphragm. Findings remain generally consistent with ileus or partial bowel obstruction. Consider CT to further evaluate. 2. Cardiomegaly status post median sternotomy with small left pleural effusion. No focal airspace opacity. Qualifiers - * PATIENT BEING DISCHARGED WITH ANY OF THE FOLLOWING DIAGNOSIS: No Reason(s) for not prescribing Anti-coagulation therapy:: Not indicated Acute Heart Failure - Is this a Heart Failure Patient?: Yes Documentation of LVEF assessment?: Yes LVEF < 40%?: No- if no continue to question #3 a) Discharged on ACEI?: No, document contraindications - acute renal failure Reason(s) not discharge on ACEI: Impaied/worsening renal function b) Discharges on ARB?: No-document contraindications Reason(s) not discharged on ARB: Impaired/worsening renal functions Reason(s) not discharged on ARNI: Impaired/worsening renal functions d) Discharged on evidence-based Beta deepthi(carvedilol, sustained release metoprolol succinate, or bisoprolol)?: No, document contraindications - Patient is presently NPO e) For LVEF <35%, discharged on Aldosterone antagonist?: N/A (LVEF > or = 35%) [facility] Reason(s) not discharged on Aldosterone antagonist for LVEF < 35%: Renal dysfunction (creatinine >2.5 mg/dL in men or 2.0 mg/dL in women) 3. Anticoagulant therapy for permanect/persistent/paraoxysmal Afib or Aflutter: N/A Reason(s) not discharged on anticoagulant therapy for permanect/persistent/paraoxysmal Afib or Aflutter: Other - No indication for abnticoagulation Follow-up Appointment scheduled within 7 days?: No, document reason Plan Discharge Plan: as noted in body of note Time Spent: Greater than 30 Minutes
[2018-10-21 20:08] VITALS: BP 154/98
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
== END 2018-10-21 21:25 | disposition short-term general hospital (02) | DRG 291 ==
LOC: ER 09:33 → EH 12:15 → 3S 21:32 → ICU 10-21 09:55
PROVIDERS: ADMIT Hospitalist; ATTEND Hospitalist
PROC: 0D9670Z Drainage of Stomach with Drainage Device, Via Natural or Artificial Opening (ICD-10-PCS; principal; 2018-10-20)
DX: I13.0 Hypertensive heart and chronic kidney disease with heart failure and stage 1 through stage 4 chronic kidney disease, or unspecified chronic kidney disease (principal); J96.01 Acute respiratory failure with hypoxia; J96.02 Acute respiratory failure with hypercapnia; K56.7 Ileus, unspecified; N18.4 Chronic kidney disease, stage 4 (severe); J44.1 Chronic obstructive pulmonary disease with (acute) exacerbation; Z94.1 Heart transplant status; E83.42 Hypomagnesemia; N25.0 Renal osteodystrophy; E87.5 Hyperkalemia; T50.1X5A Adverse effect of loop [high-ceiling] diuretics, initial encounter; I50.9 Heart failure, unspecified; D63.1 Anemia in chronic kidney disease; G47.33 Obstructive sleep apnea (adult) (pediatric); E78.5 Hyperlipidemia, unspecified; I25.2 Old myocardial infarction; F17.210 Nicotine dependence, cigarettes, uncomplicated; Z83.3 Family history of diabetes mellitus; Z79.01 Long term (current) use of anticoagulants; Z79.82 Long term (current) use of aspirin; Z79.899 Other long term (current) drug therapy; Z88.8 Allergy status to other drugs, medicaments and biological substances
CPT/HCPCS: 36415; 36600; 51702; 71045; 74018; 74022; 80048; 80053; 80069; 80307; 81001; 82550; 82553; 82607; 82728; 82746; 82803; 83540; 83550; 83605; 83735; 83880; 83970; 84165; 84484; 85025; 85027; 85045; 85610; 87040; 87077; 87086; 87186; 93005; 93010; 93306; 94640; 94660; 96374; 99291; J0360; J1644; J1940; J2270; J2920; J3490; J7507; J7517; J7620; J7626; S0119

== ENCOUNTER 2018-11-04 10:04 | Emergency (ER) | payer OTHER ==
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
[2018-11-04] MEDS ORDERED: ALTEPLASE INJ 2 MG VIAL (CATH CLEARANCE) IV ONE ×2 (11:44→12:22)
--- NOTE | 2018-11-04 14:10 | RADIOLOGY REPORT (SQ) ---
EXAM DESCRIPTION: CHEST SINGLE VIEW COMPLETED DATE/TIME: 11/04/2018 1:42 pm REASON FOR STUDY: malfunctioning portacath COMPARISON: 10/16/2018 EXAM PARAMETERS: NUMBER OF VIEWS: One view. TECHNIQUE: Single frontal radiographic view of the chest acquired. RADIATION DOSE: NA LIMITATIONS: None. FINDINGS: LUNGS AND PLEURA: There is bibasilar heterogeneous opacity unchanged from prior. There ma y be small pleural effusions. MEDIASTINUM AND HILAR STRUCTURES: No masses. Contour normal. HEART AND VASCULAR STRUCTURES: Cardiomegaly status post median sternotomy. BONES: No acute findings. HARDWARE: None in the chest. OTHER: There is a left chest multi lumen vascular catheter. IMPRESSION: 1. Bibasilar heterogeneous opacity unchanged from prior, which may be fibrotic in nature . There may be small pleural effusions. Cardiomegaly status post median sternotomy. 2. There is a left chest multi lumen vascular catheter. There is no port catheter appreciated. TECHNICAL DOCUMENTATION: JOB ID: [id number] [employer]- All Rights Reserved Reading location - IP/workstation name: [email or web address]
[2018-11-04 15:07] VITALS: BP 162/92
== END 2018-11-04 15:06 | disposition home or self-care (01) ==
LOC: ER 10:04
DX: T82.9XXA Unspecified complication of cardiac and vascular prosthetic device, implant and graft, initial encounter (principal); Y71.8 Miscellaneous cardiovascular devices associated with adverse incidents, not elsewhere classified; N18.6 End stage renal disease; Z99.2 Dependence on renal dialysis; I51.7 Cardiomegaly; Z94.1 Heart transplant status; Z79.82 Long term (current) use of aspirin; Z79.899 Other long term (current) drug therapy; F17.200 Nicotine dependence, unspecified, uncomplicated
CPT/HCPCS: 96376; 99284; 96374; 71045; J2997

== ENCOUNTER → 2019-02-11 | Outpatient (CLI) | payer OTHER ==
--- NOTE | 2019-02-11 16:33 | WOMENS IMAGING REPORT ---
EXAM DESCRIPTION: BONE DENSITY HIP/SPINE COMPLETED DATE/TIME: 02/11/2019 2:30 pm REASON FOR STUDY: M81.0 BONE DENSITY M81.0 AGE-RELATED OSTEOPOROSIS W/O CURRENT PATHOLOGICAL FRAC COMPARISON: None. TECHNIQUE: Dual-Energy X-ray Absorptiometry (DEXA) of the AP Spine and Hip. LIMITATIONS: None. FINDINGS: LUMBAR SPINE: The bone mineral density (BMD) measured from L1-L4 in the AP projection correlates with a T-score of -0.8, which is normal as defined by the World Health Organization. BMD Change vs Baseline: N/A HIP: The bone mineral density (BMD) measured in the left femoral neck at the hip correlates with a T-score of -1.6, which is osteopenic as defined by the World Health Organization. BMD Change vs Baseline: N/A 10 year Fracture Risk Assessment: Major Osteoporotic Fracture: 1.9% Hip Fracture: 0.1% IMPRESSION: 1. LUMBAR SPINE WHO CLASSIFICATION: Normal 2. HIP WHO CLASSIFICATION: Osteopenic OVERALL ASSESSMENT: WHO CLASSIFICATION: Osteopenic COMMENT: The World Health Organization defines low BMD as follows: T-score: Normal: Greater than -1.0 Osteopenia: Between -1.0 and -2.5 Osteoporosis: Less than -2.5 without fractures Established osteoporosis: Less than -2.5 with fractures In general, you may wish to consider: Diagnosis Treatment Follow-up DEXA Normal BMD Prevention 2-3 years Osteopenia Prevention/Therapy 1-2 years Osteoporosis Therapy Yearly TECHNICAL DOCUMENTATION: JOB ID: [id number] [employer]- All Rights Reserved Reading location - IP/workstation name: [email or web address]
== END ==
LOC: WI 14:05
PROVIDERS: ATTEND Family Medicine
DX: M81.0 Age-related osteoporosis without current pathological fracture (principal)
CPT/HCPCS: 77080